=== PATIENT | female | born 1960 | race Caucasian/White ===

== ENCOUNTER 2019-10-28 14:05 | Inpatient (IN) | payer OTHER ==
[2019-10-28] MEDS ORDERED: hydrALAZINE IV* 20 MG/ML VIAL IV ONE (15:51)
[2019-10-28 16:11] LABS: ABS Basophils 0.1 10^3/ul (0-0.2); ABS Eosinophils 0.1 10^3/ul (0-0.6); ABS Lymphocytes 1.1 10^3/ul (1.0-4.8); ABS Monocytes 0.5 10^3/ul (0-0.8); ABS Neutrophils 3.6 10^3/ul (1.5-7.7); Eosinophil % 2.2 %; Hematocrit 34 % (35-47); Hemoglobin 12.5 g/dL (12.0-16.0); Lymphocyte % 20.6 %; Mean Corpuscular HGB Conc 37 g/dL (31-36); Mean Corpuscular Hemoglobin 32 pg (27-31); Mean Corpuscular Volume 87 fL (80-97); Mean Platelet Volume 5.9 fL (7.4-10.4); Platelet Count 432 10^3/uL (150-450); Red Blood Count 3.92 10^6 /uL (3.70-4.87); Red Cell Distribution Width 13 % (10-15); White Blood Count 5.3 10^3/uL (3.5-10.8)
[2019-10-28 16:15] LABS: INR 0.96 (0.82-1.09)
[2019-10-28 16:23] LABS: Albumin 4.8 g/dL (3.2-5.2); Albumin/Globulin Ratio 1.7 (1-3); BUN/Creatinine Ratio 17.5 (8-20); Calcium 9.5 mg/dL (8.6-10.3); EGFR African American 131.8 (>60); EGFR Non-African American 108.9 (>60); Globulin 2.9 g/dL (2-4); Potassium 3.6 mmol/L (3.5-5.0); Total Bilirubin 0.4 mg/dL (0.2-1.0); Total Protein 7.7 g/dL (6.4-8.9)
[2019-10-28] MEDS ORDERED: NS 0.9% 1000 ML** 1,000 ML IV ONE (16:38)
[2019-10-28 16:43] LABS: Urine Appearance Clear; Urine Bilirubin Negative (Negative); Urine Blood 1+ (Negative); Urine Color Straw; Urine Glucose Negative (Negative); Urine Ketones Negative (Negative); Urine Nitrite Negative (Negative); Urine Protein Negative (Negative); Urine Specific Gravity 1.009 (1.010-1.030); Urine Urobilinogen Negative (Negative)
--- NOTE | 2019-10-28 16:49 | ED ---
Altered Mental Status - HPI Summary HPI Summary: Patient is a 59-year-old female presenting to the ED with a variety of complaints. Her main concern is her hypertension over the past 3 months. She states she has a history of adrenal insufficiency and chronically has low sodium , ranging from between 127 and 132. She eats a very high sodium diet to try to correct this. She has also been on chronic fludrocortisone, however was recently taken off this due to her high blood pressure. She was placed on losartan and amlodipine within the past 3 months and despite these medications, her blood pressure continues to be high. She states she is been complaining of imbalance, unsteady on her feet, some confusion, slow to respond, headaches and visual changes. Visual changes are described as blurry vision, worse at night. Pt appears fairly well - but is clearly unsteady on her feet. She has never been dx with addisons disease. - History Of Current Complaint Chief Complaint: EDHypertension Stated Complaint: HIGH BLOOD PRESSURE PER PT Time Seen by Provider: 10/28/19 14:43 Hx Obtained From: Patient Onset/Duration: Still Present Timing: Constant Severity Initially: Moderate Severity Currently: Moderate Character: Confusion, Lethargy Aggravating Factor(s): Nothing Alleviating Factor(s): Nothing Associated Signs And Symptoms: Positive: Weakness - Allergies/Home Medications Allergies/Adverse Reactions: Allergies Allergy/AdvReac Type Severity Reaction Status Date / Time Iodinated Contrast Media Allergy Swelling Verified 10/28/19 14:11 Of Face,Lips,& Throat Home Medications: Home Medications ARIPiprazole TAB* [Abilify 15 MG TAB*] 15 mg PO DAILY 10/28/19 [History Confirmed 10/28/19] Benztropine TAB* [Cogentin TAB*] 0.5 mg PO BID 10/28/19 [History Confirmed 10/28] Desvenlafaxine Succinate [Desvenlafaxine ER] 50 mg PO DAILY 10/28/19 [History Confirmed 10/28/19] Diazepam TAB(*) [Valium TAB(*)] 10 mg PO BID 10/28/19 [History Confirmed ] Ibuprofen TAB* [Motrin TAB* 600 MG] 600 mg PO TID 10/28/19 [History Confirmed ] Levothyroxine TAB* [Synthroid TAB*] 50 mcg PO DAILY 10/28/19 [History Confirmed 10/28/19] Losartan Potassium 100 mg PO DAILY 10/28/19 [History Confirmed 10/28/19] OXcarbazepine TAB(*) [Trileptal 300 mg TAB(*)] 600 mg PO TID 10/28/19 [History Confirmed 10/28/19] Pregabalin 100 mg CAP (*) [Lyrica 100 mg CAP (*)] 150 mg PO BEDTIME 10/28/19 [ History Confirmed 10/28/19] amLODIPine TAB* [Norvasc 5 mg TAB*] 5 mg PO DAILY 10/28/19 [History Confirmed ] PMH/Surg Hx/FS Hx/Imm Hx Previously Healthy: Yes - Immunization History Hx Pertussis Vaccination: No Immunizations Up to Date: Yes Infectious Disease History: No Infectious Disease History: Denies: Traveled Outside the [place] in Last 30 Days - Social History Occupation: Unemployed Lives: With Family Alcohol Use: Rare Hx Substance Use: Yes Substance Use Type: Reports: Marijuana Substance Use Comment - Amount & Last Used: for pain Smoking Status (MU): Never Smoked Tobacco Review of Systems Positive: Fatigue. Negative: Fever, Chills, Skin Diaphoresis Positive: Blurred Vision Negative: Sore Throat Negative: Palpitations, Chest Pain Negative: Shortness Of Breath, Cough Genitourinary: Negative Positive: no symptoms reported, see HPI Negative: Arthralgia, Myalgia Skin: Negative Neurological/Mental Status: Negative Positive: Weakness Positive: Depressed All Other Systems Reviewed And Are Negative: Yes Physical Exam Triage Information Reviewed: Yes Vital Signs On Initial Exam: Initial Vitals Temp Pulse Resp BP Pulse Ox 97.1 F 83 18 209/99 98 10/28/19 14:08 10/28/19 14:08 10/28/19 14:08 10/28/19 14:08 10/28/19 14:08 Vital Signs Reviewed: Yes Appearance: Positive: Ill-Appearing - fatigued/pale Head/Face: Positive: Normal Head/Face Inspection Eyes: Positive: EOMI, Conjunctiva Clear Neck: Positive: Supple, No Lymphadenopathy Respiratory/Lung Sounds: Positive: Clear to Auscultation, Breath Sounds Present Cardiovascular: Positive: RRR, Pulses are Symmetrical in both Upper and Lower Extremities Musculoskeletal: Positive: Other - weakness/stumbling Neurological: Positive: Facial Symmetry, Speech Normal Psychiatric: Positive: Normal, Affect/Mood Appropriate AVPU Assessment: Alert Procedures - Sedation Patient Received Moderate/Deep Sedation with Procedure: No Diagnostics - Vital Signs Vital Signs Temp Pulse Resp BP Pulse Ox 10/28/19 16:19 74 190/93 100 10/28/19 16:01 70 100 10/28/19 15:52 77 93 10/28/19 14:08 97.1 F 83 18 209/99 98 - Laboratory Lab Results: Lab Results 10/28/19 10/28/19 10/28/19 Range/Units 15:58 15:58 15:58 WBC 5.3 (3.5-10.8) 10^3/uL RBC 3.92 (3.70-4.87) 10^6 /uL Hgb 12.5 (12.0-16.0) g/dL Hct 34 L (35-47) % MCV 87 (80-97) fL MCH 32 H (27-31) pg MCHC 37 H (31-36) g/dL RDW 13 (10-15) % Plt Count 432 (150-450) 10^3/uL MPV 5.9 L (7.4-10.4) fL Neut % (Auto) 67.4 % Lymph % (Auto) 20.6 % [place] % (Auto) 8.7 % Eos % (Auto) 2.2 % Baso % (Auto) 1.1 % Absolute Neuts (auto) 3.6 (1.5-7.7) 10^3/ul Absolute Lymphs (auto) 1.1 (1.0-4.8) 10^3/ul Absolute Monos (auto) 0.5 (0-0.8) 10^3/ul Absolute Eos (auto) 0.1 (0-0.6) 10^3/ul Absolute Basos (auto) 0.1 (0-0.2) 10^3/ul Absolute Nucleated RBC 0.0 10^3/ul Nucleated RBC % 0.0 INR (Anticoag Therapy) 0.96 (0.82-1.09) Sodium 118 L* (135-145) mmol/L Potassium 3.6 (3.5-5.0) mmol/L Chloride 85 L (101-111) mmol/L Carbon Dioxide 28 (22-32) mmol/L Anion Gap 5 (2-11) mmol/L BUN 10 (6-24) mg/dL Creatinine 0.57 (0.51-0.95) mg/dL Est GFR ( Amer) 131.8 (>60) Est GFR (Non-Af Amer) 108.9 (>60) BUN/Creatinine Ratio 17.5 (8-20) Glucose 98 (70-100) mg/dL Lactic Acid (0.5-2.0) mmol/L Calcium 9.5 (8.6-10.3) mg/dL Total Bilirubin 0.40 (0.2-1.0) mg/dL AST 19 (13-39) U/L ALT 10 (7-52) U/L Alkaline Phosphatase 80 (34-104) U/L Troponin I 0.00 (<0.03) ng/mL Total Protein 7.7 (6.4-8.9) g/dL Albumin 4.8 (3.2-5.2) g/dL Globulin 2.9 (2-4) g/dL Albumin/Globulin Ratio 1.7 (1-3) TSH Pending Thyroxine (T4) Pending Urine Color Urine Appearance Urine pH (5-9) Ur Specific [place] (1.010-1.030) Urine Protein (Negative) Urine Ketones (Negative) Urine Blood (Negative) Urine Nitrate (Negative) Urine Bilirubin (Negative) Urine Urobilinogen (Negative) Ur Leukocyte Esterase (Negative) Urine Glucose (Negative) 10/28/19 10/28/19 Range/Units 15:58 16:25 WBC (3.5-10.8) 10^3/uL RBC (3.70-4.87) 10^6 /uL Hgb (12.0-16.0) g/dL Hct (35-47) % MCV (80-97) fL MCH (27-31) pg MCHC (31-36) g/dL RDW (10-15) % Plt Count (150-450) 10^3/uL MPV (7.4-10.4) fL Neut % (Auto) % Lymph % (Auto) % [place] % (Auto) % Eos % (Auto) % Baso % (Auto) % Absolute Neuts (auto) (1.5-7.7) 10^3/ul Absolute Lymphs (auto) (1.0-4.8) 10^3/ul Absolute Monos (auto) (0-0.8) 10^3/ul Absolute Eos (auto) (0-0.6) 10^3/ul Absolute Basos (auto) (0-0.2) 10^3/ul Absolute Nucleated RBC 10^3/ul Nucleated RBC % INR (Anticoag Therapy) (0.82-1.09) Sodium (135-145) mmol/L Potassium (3.5-5.0) mmol/L Chloride (101-111) mmol/L Carbon Dioxide (22-32) mmol/L Anion Gap (2-11) mmol/L BUN (6-24) mg/dL Creatinine (0.51-0.95) mg/dL Est GFR ( Amer) (>60) Est GFR (Non-Af Amer) (>60) BUN/Creatinine Ratio (8-20) Glucose (70-100) mg/dL Lactic Acid 0.4 L (0.5-2.0) mmol/L Calcium (8.6-10.3) mg/dL Total Bilirubin (0.2-1.0) mg/dL AST (13-39) U/L ALT (7-52) U/L Alkaline Phosphatase (34-104) U/L Troponin I (<0.03) ng/mL Total Protein (6.4-8.9) g/dL Albumin (3.2-5.2) g/dL Globulin (2-4) g/dL Albumin/Globulin Ratio (1-3) TSH Thyroxine (T4) Urine Color Straw Urine Appearance Clear Urine pH 7.0 (5-9) Ur Specific [place] 1.009 L (1.010-1.030) Urine Protein Negative (Negative) Urine Ketones Negative (Negative) Urine Blood 1+ A (Negative) Urine Nitrate Negative (Negative) Urine Bilirubin Negative (Negative) Urine Urobilinogen Negative (Negative) Ur Leukocyte Esterase Negative (Negative) Urine Glucose Negative (Negative) Result Diagrams: 10/28/19 15:58 10/28/19 15:58 Lab Statement: Any lab studies that have been ordered have been reviewed, and results considered in the medical decision making process. Altered Mental Statu Course/Dx - Course Course Of Treatment: This patient is evaluated for multiple complaints. Patient states she has been more unsteady on her feet, slow to respond, having visual changes and some headaches. She denies any pain currently. She states she also has chronic pain and recently had injections into the right neck and shoulder. She states despite being pain-free, her blood pressure still is very high and believes her symptoms are related to this. She is noted to be 209/99 on arrival. She does take losartan and amlodipine shoe. She was given hydralazine 5 mg and labs were obtained. This shows a sodium level of 118. Other labs unremarkable. Patient continues to be symptomatic, normal saline given. Discussed case with Dr. Wan and Dr. Marrero. Will see patient in the ED and admit. - Diagnoses Differential Diagnosis/HQI/PQRI: Metabolic Disorder, Other - htn, adrenal insufficiency Provider Diagnoses: Hyponatremia Discharge ED - Sign-Out/Discharge Documenting (check all that apply): Patient Departure - Discharge Plan Condition: Fair Disposition: ADMITTED TO [facility] Referrals: No Primary Care Phys,NOPCP [Primary Care Provider] - - Billing Disposition and Condition Condition: FAIR Disposition: Admitted to [facility] - Attestation Statements Provider Attestation: I was available for consult. This patient was seen by the SHARON. The patient was not presented to, seen by, or examined by me. Alistair Florian MD
[2019-10-28 16:51] LABS: Urine Bacteria Absent (Absent); Urine Red Blood Cell Trace(0-2/hpf) (Absent); Urine Squamous Epithelial Cell Present (Absent); Urine White Blood Cell Trace(0-5/hpf) (Absent)
[2019-10-28 16:54] LABS: T4, Total 5.43 mcg/dL (6.09-12.23)
[2019-10-28 16:58] LABS: TSH (Thyroid Stimulating Horm) 2.79 mcIU/mL (0.34-5.60)
[2019-10-28] MEDS ORDERED: hydrALAZINE IV* 20 MG/ML VIAL IV SLOW PU PRN (17:47)
--- NOTE | 2019-10-28 19:56 | HP ---
ADMISSION HISTORY AND PHYSICAL: DATE OF ADMISSION: 10/28/19 ATTENDING FOR THIS ADMISSION: Dr. Reynaldo Marrero, ICU bulb filler.* (dictated by Madi Gan NP) PRIMARY CARE PROVIDER: Not local. The patient is from [place]. CHIEF COMPLAINT: Hypertension. HISTORY OF PRESENT ILLNESS: This is a 59-year-old female patient who presented to the emergency department today with a series of complaints ranging from dizziness to unsteadiness in her feet to blurry vision, also some hypertension. The patient states that she was in [place] yesterday, having a radiofrequency ablation of her cervical spine. She does have chronic spinal issues secondary to an injury many years ago and that she has been following up with [place] with pain management clinic out there. She had this procedure yesterday; however, she has had some persistent hypertension over the last couple of months; however, blood pressure was much more elevated today prompting her to seek additional medical attention. In the emergency department , the patient is noted to have a very elevated blood pressure of 209/99. She was also noted to be hyponatremic with a sodium of 118. The patient does state that these problems have been persistent over the last 3 months and that she has had a progressive malaise. She does have a history of adrenal insufficiency and had been on fludrocortisone for many years; however, she was taken off the fludrocortisone because she was having elevated blood pressures. She was started on losartan and amlodipine to control her hypertension; however , she has not been successfully well controlled. In the emergency department today, she is also complaining of being unsteady on her feet. She has got a profound headache and some visual changes. She notes her vision to be blurry and overall feeling unwell. Because the patient had such a low sodium with complaints of dizziness, there was concern for the patient of having an acute symptomatic hyponatremia and subsequently ICU was called to plan the patient for admission. PAST MEDICAL HISTORY: Significant for adrenal insufficiency, hypertension, chronic hyponatremia, chronic cervical myalgia, RDS, depression, mood disorder, chronic pain, and hypothyroidism. PAST SURGICAL HISTORY: Significant for multiple radiofrequency ablations of the cervical spine, cervical spine stimulator insertion and a right shoulder surgery. HOME MEDICATIONS: Include: 1. Amlodipine 5 mg daily. 2. Losartan 100 mg p.o. daily. 3. Levothyroxine 50 mcg p.o. daily. 4. Diazepam 10 mg p.o. b.i.d. 5. Abilify 15 mg p.o. daily. 6. Lyrica 150 mg at bedtime. 7. Benztropine 0.5 mg p.o. b.i.d. 8. Trileptal 600 mg p.o. t.i.d. 9. Ibuprofen 600 mg p.o. t.i.d. 10. Desvenlafaxine ER 50 mg p.o. daily. ALLERGIES: She has an allergy to IODINE, IV CONTRAST DYE, which causes throat swelling. FAMILY HISTORY: She has a sister with breast cancer and no further family history is reported. SOCIAL HISTORY: The patient does not smoke cigarettes. She does infrequently smoke cannabis products for pain control. Denies any alcohol use. Denies any other illicit drug use. REVIEW OF SYSTEMS: The patient denies any fever, fatigue, or chills. She does endorse a 7/10 headache and some moderately blurred vision, but she denies any further visual disturbances. She denies any auras. She also denies any dysarthria or any focal weakness. She denies chest pain. No shortness of breath. No nausea. No vomiting. No abdominal pains. She denies any arthralgias. She does have some myalgia and some neck pain and also some cervical pain in the right neck and into the right shoulder and then lumbar pain on the right side also radiating into the right hip which she notes to be chronic. Denies any urinary complaints. She does endorse feeling unsteady on her feet, but denies any further focalities and no further constitutional complaints. PHYSICAL EXAMINATION GENERAL: Reveals a well-nourished, well-appearing female, in no acute distress. VITAL SIGNS: Temperature 97.1, pulse 83, respiratory rate 18, O2 saturation 98 % on room air with a blood pressure of 209/99, repeat blood pressure is 190/93. HEENT: The patient is atraumatic, normocephalic. PERRLA. Nonicteric sclerae. Extraocular movements are intact. Oral mucosa is moist. Tongue is midline. NECK: Supple, nontender. No JVD noted. No carotid bruits auscultated. LUNGS: Clear bilaterally to auscultation with no wheezing, rhonchi, or rales. CARDIOVASCULAR: S1, S2 present. Rate and rhythm are regular. No murmurs, gallops, or rubs noted. ABDOMEN: Soft, nontender, nondistended. Positive bowel sounds in all 4 quadrants. No organomegaly noted. : Deferred. MUSCULOSKELETAL: There is no clubbing, no cyanosis, and no edema. She has +2 distal pulses palpable. She has gross sensation intact of the upper and lower extremities. Motor is 5/5 on the left upper extremity, 5/5 on the left lower extremity, 5/5 on the right lower extremity and 4/5 on the right upper extremity. Her right electronics hardware design engineer is slightly weaker than her left electronics hardware design engineer. She has no pronator drift. NEUROLOGIC: She has no further focalities. PSYCHIATRIC: She is cooperative and appropriate. DIAGNOSTIC STUDIES/LAB DATA: Laboratories: WBCs 5.3, RBCs 3.92, hemoglobin 12.5, hematocrit 34, platelets 432. Sodium 118, potassium 3.6, chloride 85, CO2 of 28, BUN 10, creatinine 0.57, GFR 108.9, glucose 98, lactic acid 0.4, calcium 9.5, bilirubin 0.40, AST 19, ALT 10, alk phos 80. Troponin is negative at 0.00. Total protein 7.7, albumin 4.8, globulin 2.9, albumin-globulin ratio 1.7, TSH 2.79, free T4 is 5.43. Urinalysis is negative for any acute infective process. Imaging: Chest x-ray, impression by radiology is no acute cardiopulmonary process. IMPRESSION: This is a 59-year-old female who presents to the emergency department with vague complaints, but primarily is presenting with an elevated and accelerated blood pressure and a chronically low sodium. PLAN: 1. Initially, the patient does not necessarily present as she was having an acute drop in her sodium. Per the patient's report, her sodium was 105 last week when she was seen in [place] at the urgent care. At that time, she was told to have fluid restriction and followup with her primary care provider who is in [place]. Her sodium is now up to 118 over the course of the last week, so it is steadily increasing. At this point, I do not feel that her symptoms are necessarily related to her sodium; however, her headache and her dizziness could very well be related to her accelerated hypertension. Her blood pressure came in at 209/99. She did receive 1 dose of hydralazine and her blood pressure is starting to come down. We will continue her on hydralazine q.6 hours. Start her back on her amlodipine and her losartan and continue to monitor her blood pressure. In terms of her history of hyponatremia , she is on a very high dose of Trileptal which is likely contributing to her chronically low sodium and can also cause SIADH. At this point, it would take some time to taper the patient off of her Trileptal and she is stabilized on that, likely for both behavioral component and for chronic pain. It would be our recommendation that the patient begin to taper off of the Trileptal; however , this is something that would need to be done in the outpatient environment. At this time, she has received 1 L of bolus of normal saline and again I do not believe that her symptoms right now are indicative of acute hyponatremia. She should be on a free water restriction while hospitalized. We will do BMPs q.6 hours and monitor for correction of her sodium while acutely hospitalized. Urine sodium and osmo are pending. 2. In terms of her chronic pain, she does have chronic cervical myalgia and history of RDS. She did have radiofrequency ablation in [place] yesterday. Her electronics hardware design engineer on the right hand is somewhat weaker than her left, but again these are all chronic issues. She did receive anesthesia for this procedure yesterday. Some of her gait dysfunction and weakness could be due to chronic cervical and cord issues; however, she also takes Cogentin and has been on multiple antipsychotics in the past. Some of her gait dysfunction could be secondary to EPS syndrome. She is on Cogentin 2 times a day. I would recommend having a PT evaluation. I also explained to the patient that she should have neurosurgical evaluation. She does state that her issues with her C -spine were secondary to an injury and a Workmen's Comp case. Again, these are not acute issues. She is not showing any neurovascular compromise. She does not have a myelopathy and although her electronics hardware design engineer is slightly weaker on the right side versus the left, she does not seem to be acutely impaired. Again, these are things that should be followed up as an outpatient. 3. History of depression and mood disorder. We will continue her on her home medications, but as stated above, the Trileptal is something that should be managed on an ongoing basis as an outpatient and given her history of low sodium , she should likely follow up with the psychiatrist or a primary care provider that should taper her off and put her on a different mood stabilizer if her sodiums cannot be better controlled and she persistently has hyponatremia and SIADH. 4. Potential Adrenal Insufficiency. Patient is off steroids at this time, will check AM cortisol level and consider endocrine consultation tomorrow. 4. For DVT prophylaxis, the patient is low risk given her age; however, she is being admitted to ICU. She should be on SCDs and then ambulate with assistance as tolerated. 5. Her healthcare proxy is her sister, Lary, who is at the bedside. 6. Code status is full code. DISPOSITION: The patient is admitted to ICU for intensive monitoring of sodium levels and management of accelerated hypertension. CRITICAL CARE TIME SPENT: 45 minutes on admission planning. This plan of care has been discussed with Dr. Reynaldo Marrero, ICU attending on this case and he is in agreement with this admission plan. MADI GAN NP [id number]/CPS #: [id number] HERIBERTO
[2019-10-28] MEDS ORDERED: Diazepam TAB(*) 10 MG PO SCH (21:00)
[2019-10-28] MEDS ORDERED: Pregabalin 100 mg CAP (*) PO SCH (21:00)
[2019-10-28] MEDS: Pregabalin 50 mg CAP (*) PO SCH (22:39)
[2019-10-28] MEDS: Benztropine TAB* 1 MG PO SCH (22:40)
[2019-10-28] MEDS: OXcarbazepine TAB(*) 300 MG PO SCH (22:45)
[2019-10-29 00:44] LABS: BUN/Creatinine Ratio 15.7 (8-20); Calcium 9.2 mg/dL (8.6-10.3); EGFR African American 149.9 (>60); EGFR Non-African American 123.9 (>60); Potassium 3.6 mmol/L (3.5-5.0)
[2019-10-29] MEDS: Levothyroxine TAB* 50 MCG TAB PO SCH (05:25)
[2019-10-29 06:02] LABS: BUN/Creatinine Ratio 16.4 (8-20); Calcium 8.9 mg/dL (8.6-10.3); EGFR African American 137.4 (>60); EGFR Non-African American 113.5 (>60); Potassium 3.8 mmol/L (3.5-5.0)
[2019-10-29] MEDS: Benztropine TAB* 1 MG PO SCH ×2 (08:32→20:43)
[2019-10-29] MEDS: amLODIPine TAB* 5 MG PO SCH (08:33)
[2019-10-29] MEDS: ARIPiprazole TAB* 15 MG PO SCH (08:33)
[2019-10-29] MEDS: CMCS:Desvenlafaxine (NF) 50 MG TAB PO SCH (08:34)
[2019-10-29] MEDS: OXcarbazepine TAB(*) 300 MG PO SCH ×3 (08:34→20:45)
[2019-10-29] MEDS ORDERED: Desvenlafaxine (NF) 50 MG TAB PO SCH (09:00)
[2019-10-29] MEDS ORDERED: ARIPiprazole TAB* 15 MG PO SCH (09:00)
[2019-10-29] MEDS ORDERED: Levothyroxine TAB* 50 MCG TAB PO SCH (09:00)
[2019-10-29] MEDS ORDERED: Cosyntropin* 0.25 MG VIAL IV ONE (09:30)
[2019-10-29] MEDS: Losartan TAB* 25 MG PO SCH (10:21)
--- NOTE | 2019-10-29 12:55 | PN ---
Subjective Date of Service: 10/29/19 Interval History: Patient seen and examined. No acute overnight events. Symptoms of headache, lethargy and blurry vision all vastly improved this morning. BP well controlled , sodium increasing. Discussed POC with patient and her sister at bedside. Objective Active Medications: Amlodipine Besylate (Norvasc Tab*) 5 mg PO DAILY [facility] Last Admin: 10/29/19 08:33 Dose: 5 mg Aripiprazole (Abilify Tab*) 15 mg PO DAILY [facility] Last Admin: 10/29/19 08:33 Dose: 15 mg Benztropine Mesylate (Cogentin Tab*) 0.5 mg PO BID [facility] Last Admin: 10/29/19 08:32 Dose: 0.5 mg Desvenlafaxine Succinate (Pristiq (Nf)) 50 mg PO DAILY [facility] Last Admin: 10/29/19 08:34 Dose: 50 mg Diazepam (Valium Tab(*)) 10 mg PO BID PRN PRN Reason: AGITATION/ANXIETY Hydralazine HCl (Apresoline Iv*) 5 mg IV SLOW PU Q6H PRN PRN Reason: SBP>160 Levothyroxine Sodium (Synthroid Tab*) 50 mcg PO DAILY@0600 [facility] Last Admin: 10/29/19 05:25 Dose: 50 mcg Losartan Potassium (Cozaar Tab*) 100 mg PO DAILY [facility] Last Admin: 10/29/19 10:21 Dose: 100 mg Oxcarbazepine (Trileptal Tab(*)) 600 mg PO TID [facility] Last Admin: 10/29/19 08:34 Dose: 600 mg Pregabalin (Lyrica 50 Mg Cap (*)) 150 mg PO BEDTIME [facility] Last Admin: 10/28/19 22:39 Dose: 150 mg Vital Signs - 8 hr 10/29/19 10/29/19 10/29/19 04:51 05:00 05:01 Temperature Pulse Rate 77 81 Respiratory 20 19 15 Rate Blood Pressure 141/77 (mmHg) O2 Sat by Pulse 97 75 Oximetry 10/29/19 10/29/19 10/29/19 06:00 06:16 07:00 Temperature Pulse Rate 68 Respiratory 20 23 20 Rate Blood Pressure 167/89 153/87 (mmHg) O2 Sat by Pulse 98 Oximetry 10/29/19 10/29/19 10/29/19 07:48 08:00 09:00 Temperature 96.6 F Pulse Rate 63 83 Respiratory 20 23 Rate Blood Pressure 128/79 159/87 (mmHg) O2 Sat by Pulse 98 94 Oximetry 10/29/19 10/29/19 10/29/19 10:00 10:51 10:56 Temperature Pulse Rate 99 87 84 Respiratory 20 16 17 Rate Blood Pressure 180/96 158/88 (mmHg) O2 Sat by Pulse 100 98 96 Oximetry 10/29/19 10/29/19 10/29/19 11:00 11:37 11:44 Temperature 100.1 F Pulse Rate 84 86 Respiratory 15 18 Rate Blood Pressure 147/88 148/85 (mmHg) O2 Sat by Pulse 99 100 Oximetry 10/29/19 12:00 Temperature Pulse Rate 91 Respiratory 26 Rate Blood Pressure 161/95 (mmHg) O2 Sat by Pulse 93 Oximetry Oxygen Devices in Use Now: None Appearance: alert, well appearing, NAD Eyes: No Scleral Icterus, PERRLA Ears/Nose/Mouth/Throat: Mucous Membranes Moist Neck: NL Appearance and Movements; NL JVP, Trachea Midline Respiratory: Symmetrical Chest Expansion and Respiratory Effort, Clear to Auscultation Cardiovascular: NL Sounds; No Murmurs; No JVD, RRR, No Edema Abdominal: NL Sounds; No Tenderness; No Distention Extremities: No Edema, No Clubbing, Cyanosis Skin: No Rash or Ulcers Neurological: Alert and Oriented x 3, NL Muscle Strength and Tone Nutrition: Taking PO's Result Diagrams: 10/28/19 15:58 10/29/19 05:30 Additional Lab and Data: Lab Results 10/28/19 10/28/19 10/28/19 Range/Units 15:58 15:58 15:58 WBC 5.3 (3.5-10.8) 10^3/uL RBC 3.92 (3.70-4.87) 10^6 /uL Hgb 12.5 (12.0-16.0) g/dL Hct 34 L (35-47) % MCV 87 (80-97) fL MCH 32 H (27-31) pg MCHC 37 H (31-36) g/dL RDW 13 (10-15) % Plt Count 432 (150-450) 10^3/uL MPV 5.9 L (7.4-10.4) fL Neut % (Auto) 67.4 % Lymph % (Auto) 20.6 % [place] % (Auto) 8.7 % Eos % (Auto) 2.2 % Baso % (Auto) 1.1 % Absolute Neuts (auto) 3.6 (1.5-7.7) 10^3/ul Absolute Lymphs (auto) 1.1 (1.0-4.8) 10^3/ul Absolute Monos (auto) 0.5 (0-0.8) 10^3/ul Absolute Eos (auto) 0.1 (0-0.6) 10^3/ul Absolute Basos (auto) 0.1 (0-0.2) 10^3/ul Absolute Nucleated RBC 0.0 10^3/ul Nucleated RBC % 0.0 INR (Anticoag Therapy) 0.96 (0.82-1.09) Sodium 118 L* (135-145) mmol/L Potassium 3.6 (3.5-5.0) mmol/L Chloride 85 L (101-111) mmol/L Carbon Dioxide 28 (22-32) mmol/L Anion Gap 5 (2-11) mmol/L BUN 10 (6-24) mg/dL Creatinine 0.57 (0.51-0.95) mg/dL Est GFR ( Amer) 131.8 (>60) Est GFR (Non-Af Amer) 108.9 (>60) BUN/Creatinine Ratio 17.5 (8-20) Glucose 98 (70-100) mg/dL Lactic Acid (0.5-2.0) mmol/L Calcium 9.5 (8.6-10.3) mg/dL Total Bilirubin 0.40 (0.2-1.0) mg/dL AST 19 (13-39) U/L ALT 10 (7-52) U/L Alkaline Phosphatase 80 (34-104) U/L Troponin I 0.00 (<0.03) ng/mL Total Protein 7.7 (6.4-8.9) g/dL Albumin 4.8 (3.2-5.2) g/dL Globulin 2.9 (2-4) g/dL Albumin/Globulin Ratio 1.7 (1-3) TSH Pending Thyroxine (T4) Pending Urine Color Urine Appearance Urine pH (5-9) Ur Specific [place] (1.010-1.030) Urine Protein (Negative) Urine Ketones (Negative) Urine Blood (Negative) Urine Nitrate (Negative) Urine Bilirubin (Negative) Urine Urobilinogen (Negative) Ur Leukocyte Esterase (Negative) Urine Glucose (Negative) 10/28/19 10/28/19 Range/Units 15:58 16:25 WBC (3.5-10.8) 10^3/uL RBC (3.70-4.87) 10^6 /uL Hgb (12.0-16.0) g/dL Hct (35-47) % MCV (80-97) fL MCH (27-31) pg MCHC (31-36) g/dL RDW (10-15) % Plt Count (150-450) 10^3/uL MPV (7.4-10.4) fL Neut % (Auto) % Lymph % (Auto) % [place] % (Auto) % Eos % (Auto) % Baso % (Auto) % Absolute Neuts (auto) (1.5-7.7) 10^3/ul Absolute Lymphs (auto) (1.0-4.8) 10^3/ul Absolute Monos (auto) (0-0.8) 10^3/ul Absolute Eos (auto) (0-0.6) 10^3/ul Absolute Basos (auto) (0-0.2) 10^3/ul Absolute Nucleated RBC 10^3/ul Nucleated RBC % INR (Anticoag Therapy) (0.82-1.09) Sodium (135-145) mmol/L Potassium (3.5-5.0) mmol/L Chloride (101-111) mmol/L Carbon Dioxide (22-32) mmol/L Anion Gap (2-11) mmol/L BUN (6-24) mg/dL Creatinine (0.51-0.95) mg/dL Est GFR ( Amer) (>60) Est GFR (Non-Af Amer) (>60) BUN/Creatinine Ratio (8-20) Glucose (70-100) mg/dL Lactic Acid 0.4 L (0.5-2.0) mmol/L Calcium (8.6-10.3) mg/dL Total Bilirubin (0.2-1.0) mg/dL AST (13-39) U/L ALT (7-52) U/L Alkaline Phosphatase (34-104) U/L Troponin I (<0.03) ng/mL Total Protein (6.4-8.9) g/dL Albumin (3.2-5.2) g/dL Globulin (2-4) g/dL Albumin/Globulin Ratio (1-3) TSH Thyroxine (T4) Urine Color Straw Urine Appearance Clear Urine pH 7.0 (5-9) Ur Specific [place] 1.009 L (1.010-1.030) Urine Protein Negative (Negative) Urine Ketones Negative (Negative) Urine Blood 1+ A (Negative) Urine Nitrate Negative (Negative) Urine Bilirubin Negative (Negative) Urine Urobilinogen Negative (Negative) Ur Leukocyte Esterase Negative (Negative) Urine Glucose Negative (Negative) Microbiology and Other Data: Microbiology 10/28/19 21:27 Nasal Screen MRSA (PCR) - Final Nasal Mrsa Not Detected Assess/Plan/Problems-Billing Assessment: This is a 59 year old female with reported hx of chronic hyponatremia, adrenal insufficiency, chronic pain, mood disorder and HTN that presented to the ED with complaints of accelerated hypertension and low sodium. - Patient Problems (1) Accelerated hypertension Code(s): I10 - ESSENTIAL (PRIMARY) HYPERTENSION SNOMED Code(s): 14327222 Comment: - Responded well to hydralazine - Restarted home meds, amlodipine and losartan (2) Adrenal insufficiency Code(s): E27.40 - UNSPECIFIED ADRENOCORTICAL INSUFFICIENCY SNOMED Code(s): 934934671 Comment: - was on fludricortisone for many years then abruptly taken off by PCP last month because of hypertension - However, ACTH stim test completed today is negative, so it is unclear if she ever truly had the diagnosis - Will cancel consult with endocrinology (3) Hyponatremia Code(s): E87.1 - HYPO-OSMOLALITY AND HYPONATREMIA SNOMED Code(s): 54286225 Comment: - Likely component of effects of trileptal/SIADH - Sodium 123 today - Recommend continuing fluid restriction and taper off trileptal as an outpatient, discussed at length with patient to monitor sodium levels after discharge and discuss with her psychiatrist - Urine sodium and osmo pending (4) Mood disorder Code(s): F39 - UNSPECIFIED MOOD [AFFECTIVE] DISORDER SNOMED Code(s): 64740248 Comment: - Continue home meds, recommend different mood stabilizer other than trileptal given chronically low sodium (5) Chronic pain Code(s): G89.29 - OTHER CHRONIC PAIN SNOMED Code(s): 81970426 Comment: - Supportive care (6) Full code status Current Visit: Yes Status: Acute Code(s): Z78.9 - OTHER SPECIFIED HEALTH STATUS SNOMED Code(s): 989373932 Status and Disposition: Medically stable for transfer to medical floor.
[2019-10-29] MEDS: Acetaminophen TAB* 325 MG PO PRN (20:42)
[2019-10-29] MEDS: Pregabalin 50 mg CAP (*) PO SCH (20:43)
[2019-10-30] MEDS: Levothyroxine TAB* 50 MCG TAB PO SCH (05:18)
--- NOTE | 2019-10-30 07:28 | PN ---
Subjective Date of Service: 10/30/19 Interval History: HD 3 on 10/30 Transferred from ICU on 10/29 59 F with PMH of chronic hyponatremia, suspected adrenal insufficiency, HTN, chronic pain, mood disorder presents with dizziness and unsteadiness. Found to have acclerated Hypertension and severe hyponatremia. Treated with IV fluid in ICU and with hydralazine for HTN. Yesterday felt light-headed while working with physical therapy Overnight; No acute overnight events vitals: stable Patient was feeling fine this morning. She denied weakness, dizziness, numbness and was feeling back to baseline. She was keen on going home. Her NA coming to normal; 126 from 123 wasted to assess her by PT as he had near syncope yesterday. patient was walking around fine with walker with nursing staff. While walking with PT at around 3:00 PM patient passed out. She says that her leg felt weak, felt nauseous and sick to belly before passing out. Denies chest pain, sob, palpitation. Her HR was normal, BG was 92, BP normal. No new neurological deficit noted. EKG was normal with sinus rhythm. Met with patient family and patient had similar episodes before in [place] and was admitted multiple times. It was thought to be because of pain so she was discharged. She had radiofrequency ablation one day before coming to ED at [facility]. Objective Active Medications: Acetaminophen (Tylenol Tab*) 650 mg PO Q6H PRN PRN Reason: MILD PAIN or TEMP > 100.4 Last Admin: 10/29/19 20:42 Dose: 650 mg Amlodipine Besylate (Norvasc Tab*) 5 mg PO DAILY [facility] Last Admin: 10/29/19 08:33 Dose: 5 mg Aripiprazole (Abilify Tab*) 15 mg PO DAILY [facility] Last Admin: 10/29/19 08:33 Dose: 15 mg Benztropine Mesylate (Cogentin Tab*) 0.5 mg PO BID [facility] Last Admin: 10/29/19 20:43 Dose: 0.5 mg Desvenlafaxine Succinate (Pristiq (Nf)) 50 mg PO DAILY [facility] Last Admin: 10/29/19 08:34 Dose: 50 mg Diazepam (Valium Tab(*)) 10 mg PO BID PRN PRN Reason: AGITATION/ANXIETY Hydralazine HCl (Apresoline Iv*) 5 mg IV SLOW PU Q6H PRN PRN Reason: SBP>160 Levothyroxine Sodium (Synthroid Tab*) 50 mcg PO DAILY@0600 [facility] Last Admin: 10/30/19 05:18 Dose: 50 mcg Losartan Potassium (Cozaar Tab*) 100 mg PO DAILY [facility] Last Admin: 10/29/19 10:21 Dose: 100 mg Oxcarbazepine (Trileptal Tab(*)) 600 mg PO TID [facility] Last Admin: 10/29/19 20:45 Dose: 600 mg Pregabalin (Lyrica 50 Mg Cap (*)) 150 mg PO BEDTIME [facility] Last Admin: 10/29/19 20:43 Dose: 150 mg Vital Signs - 8 hr 10/29/19 10/30/19 23:54 03:23 Temperature 98.4 F 98.0 F Pulse Rate 80 81 Respiratory 16 18 Rate Blood Pressure 124/60 139/68 (mmHg) O2 Sat by Pulse 100 100 Oximetry Oxygen Devices in Use Now: None Exam: General - NAD, sitting up in bed, Eyes - PERRLA, EOM intact HEENT- no abnormality Lymph Nodes - No lymphadenopathy Cardiovascular - RRR no m/r/g, no JVD, no carotid bruits Lungs - Clear to auscltation, no use of acessory muscles, no crackles or wheezes. Skin - No rashes, skin warm and dry, no erythematous areas Abdomen - Normal bowel sounds, abdomen soft and nontender Extremities - No edema, cyanosis or clubbing Musculo Skeletal - , no swollen or erythematous joints. 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 CN intact Result Diagrams: 10/28/19 15:58 10/30/19 09:35 Additional Lab and Data: Lab Results 10/28/19 10/28/19 10/28/19 Range/Units 15:58 15:58 15:58 WBC 5.3 (3.5-10.8) 10^3/uL RBC 3.92 (3.70-4.87) 10^6 /uL Hgb 12.5 (12.0-16.0) g/dL Hct 34 L (35-47) % MCV 87 (80-97) fL MCH 32 H (27-31) pg MCHC 37 H (31-36) g/dL RDW 13 (10-15) % Plt Count 432 (150-450) 10^3/uL MPV 5.9 L (7.4-10.4) fL Neut % (Auto) 67.4 % Lymph % (Auto) 20.6 % [place] % (Auto) 8.7 % Eos % (Auto) 2.2 % Baso % (Auto) 1.1 % Absolute Neuts (auto) 3.6 (1.5-7.7) 10^3/ul Absolute Lymphs (auto) 1.1 (1.0-4.8) 10^3/ul Absolute Monos (auto) 0.5 (0-0.8) 10^3/ul Absolute Eos (auto) 0.1 (0-0.6) 10^3/ul Absolute Basos (auto) 0.1 (0-0.2) 10^3/ul Absolute Nucleated RBC 0.0 10^3/ul Nucleated RBC % 0.0 INR (Anticoag Therapy) 0.96 (0.82-1.09) Sodium 118 L* (135-145) mmol/L Potassium 3.6 (3.5-5.0) mmol/L Chloride 85 L (101-111) mmol/L Carbon Dioxide 28 (22-32) mmol/L Anion Gap 5 (2-11) mmol/L BUN 10 (6-24) mg/dL Creatinine 0.57 (0.51-0.95) mg/dL Est GFR ( Amer) 131.8 (>60) Est GFR (Non-Af Amer) 108.9 (>60) BUN/Creatinine Ratio 17.5 (8-20) Glucose 98 (70-100) mg/dL Lactic Acid (0.5-2.0) mmol/L Calcium 9.5 (8.6-10.3) mg/dL Total Bilirubin 0.40 (0.2-1.0) mg/dL AST 19 (13-39) U/L ALT 10 (7-52) U/L Alkaline Phosphatase 80 (34-104) U/L Troponin I 0.00 (<0.03) ng/mL Total Protein 7.7 (6.4-8.9) g/dL Albumin 4.8 (3.2-5.2) g/dL Globulin 2.9 (2-4) g/dL Albumin/Globulin Ratio 1.7 (1-3) TSH Pending Thyroxine (T4) Pending Urine Color Urine Appearance Urine pH (5-9) Ur Specific [place] (1.010-1.030) Urine Protein (Negative) Urine Ketones (Negative) Urine Blood (Negative) Urine Nitrate (Negative) Urine Bilirubin (Negative) Urine Urobilinogen (Negative) Ur Leukocyte Esterase (Negative) Urine Glucose (Negative) 10/28/19 10/28/19 Range/Units 15:58 16:25 WBC (3.5-10.8) 10^3/uL RBC (3.70-4.87) 10^6 /uL Hgb (12.0-16.0) g/dL Hct (35-47) % MCV (80-97) fL MCH (27-31) pg MCHC (31-36) g/dL RDW (10-15) % Plt Count (150-450) 10^3/uL MPV (7.4-10.4) fL Neut % (Auto) % Lymph % (Auto) % [place] % (Auto) % Eos % (Auto) % Baso % (Auto) % Absolute Neuts (auto) (1.5-7.7) 10^3/ul Absolute Lymphs (auto) (1.0-4.8) 10^3/ul Absolute Monos (auto) (0-0.8) 10^3/ul Absolute Eos (auto) (0-0.6) 10^3/ul Absolute Basos (auto) (0-0.2) 10^3/ul Absolute Nucleated RBC 10^3/ul Nucleated RBC % INR (Anticoag Therapy) (0.82-1.09) Sodium (135-145) mmol/L Potassium (3.5-5.0) mmol/L Chloride (101-111) mmol/L Carbon Dioxide (22-32) mmol/L Anion Gap (2-11) mmol/L BUN (6-24) mg/dL Creatinine (0.51-0.95) mg/dL Est GFR ( Amer) (>60) Est GFR (Non-Af Amer) (>60) BUN/Creatinine Ratio (8-20) Glucose (70-100) mg/dL Lactic Acid 0.4 L (0.5-2.0) mmol/L Calcium (8.6-10.3) mg/dL Total Bilirubin (0.2-1.0) mg/dL AST (13-39) U/L ALT (7-52) U/L Alkaline Phosphatase (34-104) U/L Troponin I (<0.03) ng/mL Total Protein (6.4-8.9) g/dL Albumin (3.2-5.2) g/dL Globulin (2-4) g/dL Albumin/Globulin Ratio (1-3) TSH Thyroxine (T4) Urine Color Straw Urine Appearance Clear Urine pH 7.0 (5-9) Ur Specific [place] 1.009 L (1.010-1.030) Urine Protein Negative (Negative) Urine Ketones Negative (Negative) Urine Blood 1+ A (Negative) Urine Nitrate Negative (Negative) Urine Bilirubin Negative (Negative) Urine Urobilinogen Negative (Negative) Ur Leukocyte Esterase Negative (Negative) Urine Glucose Negative (Negative) Microbiology and Other Data: Microbiology 10/28/19 21:27 Nasal Screen MRSA (PCR) - Final Nasal Mrsa Not Detected Assess/Plan/Problems-Billing Assessment: This is a 59 year old female with reported hx of chronic hyponatremia, adrenal insufficiency, chronic pain, mood disorder and HTN that presented to the ED with complaints ofdizziness and unsteadiness. Found to have accelerated hypertension and severe hyponatremia. treated in ICU with IV fluid. HAd syncope while working with PT. Pending CT(MRI could not be done because of stimulator) - Patient Problems (1) Syncope Current Visit: Yes Status: Acute Code(s): R55 - SYNCOPE AND COLLAPSE SNOMED Code(s): 392851478 Comment: -had near-syncope yesterday with physical therapy and syncope today while working with physical therapy -felt weak to legs, had nausea and abdominal discomfort before passing out. -Denies chest pain, sob and palpitation -BG normal; HR and Bp normal; pending orthostatics -EKG normal-sinus rhythm -will monitor on Tele -will do CT scan of cervical spine given recent cervical intervention (2) Hyponatremia Current Visit: Yes Status: Acute Code(s): E87.1 - HYPO-OSMOLALITY AND HYPONATREMIA SNOMED Code(s): 60034814 Comment: - Likely component of effects of trileptal/SIADH - Sodium 126 from 123 Urine Na is 43 and urine osm high; low serum osm- consistent with SIADH - Recommend continuing fluid restriction and taper off trileptal as an outpatient, discussed at length with patient to monitor sodium levels after discharge and discuss with her psychiatrist -will monitor Na (3) Accelerated hypertension Current Visit: Yes Status: Acute Code(s): I10 - ESSENTIAL (PRIMARY) HYPERTENSION SNOMED Code(s): 13503469 Comment: - Responded well to hydralazine - Restarted home meds, amlodipine and losartan (4) Adrenal insufficiency Current Visit: Yes Status: Acute Code(s): E27.40 - UNSPECIFIED ADRENOCORTICAL INSUFFICIENCY SNOMED Code(s): 218777379 Comment: - was on fludricortisone for many years then abruptly taken off by PCP last month because of hypertension - However, ACTH stim test completed and is negative, so it is unclear if she ever truly had the diagnosis (5) Mood disorder Current Visit: Yes Status: Acute Code(s): F39 - UNSPECIFIED MOOD [AFFECTIVE ] DISORDER SNOMED Code(s): 28729459 Comment: - Continue home meds, -recommend different mood stabilizer other than trileptal given chronically low sodium -will need to slowly taper it by psychiatrist (6) Chronic pain Current Visit: Yes Status: Acute Code(s): G89.29 - OTHER CHRONIC PAIN SNOMED Code(s): 08656840 Comment: - Supportive care (7) Hypothyroid Current Visit: Yes Status: Acute Code(s): E03.9 - HYPOTHYROIDISM, UNSPECIFIED SNOMED Code(s): 91244805 Comment: -Continue levothyroxine 50 (8) DVT prophylaxis Current Visit: Yes Status: Acute Code(s): Z29.9 - ENCOUNTER FOR PROPHYLACTIC MEASURES, UNSPECIFIED SNOMED Code(s): 750311422 Comment: -lovenox (9) Full code status Current Visit: Yes Status: Acute Code(s): Z78.9 - OTHER SPECIFIED HEALTH STATUS SNOMED Code(s): 970084748 Status and Disposition: inpatient likely needs rehab pending full PT evaluation Attending: Mera Munoz Attestation Documenting Resident: Kassidy Israel Supervising Physician: Mera Munoz Attestation: This service has been performed in part by a resident under the direction of a teaching physician.I, Mera Arbach, performed the service, or was physically present during the critical, or rick portions of the service, furnished by the resident. I participated in the management of the patient.
[2019-10-30] MEDS: Benztropine TAB* 1 MG PO SCH ×2 (08:24→20:23)
[2019-10-30] MEDS: OXcarbazepine TAB(*) 300 MG PO SCH ×3 (08:26→20:24)
[2019-10-30] MEDS: Losartan TAB* 25 MG PO SCH (08:26)
[2019-10-30] MEDS: amLODIPine TAB* 5 MG PO SCH (08:26)
[2019-10-30] MEDS: ARIPiprazole TAB* 15 MG PO SCH (08:27)
[2019-10-30] MEDS: Enoxaparin(*) 40 MG/0.4 ML SYR SUBCUT SCH (08:27)
[2019-10-30] MEDS: CMCS:Desvenlafaxine (NF) 50 MG TAB PO SCH (08:27)
[2019-10-30 10:08] LABS: BUN/Creatinine Ratio 27.1 (8-20); Calcium 9.3 mg/dL (8.6-10.3); EGFR African American 126.7 (>60); EGFR Non-African American 104.7 (>60); Potassium 3.7 mmol/L (3.5-5.0)
[2019-10-30] MEDS: Acetaminophen TAB* 325 MG PO PRN (17:37)
[2019-10-30] MEDS: Pregabalin 50 mg CAP (*) PO SCH (20:23)
[2019-10-31] MEDS: Levothyroxine TAB* 50 MCG TAB PO SCH (05:21)
[2019-10-31 06:56] LABS: Hematocrit 33 % (35-47); Hemoglobin 11.8 g/dL (12.0-16.0); Mean Corpuscular HGB Conc 36 g/dL (31-36); Mean Corpuscular Hemoglobin 32 pg (27-31); Mean Corpuscular Volume 88 fL (80-97); Mean Platelet Volume 5.9 fL (7.4-10.4); Platelet Count 419 10^3/uL (150-450); Red Blood Count 3.73 10^6 /uL (3.70-4.87); Red Cell Distribution Width 13 % (10-15); White Blood Count 3.7 10^3/uL (3.5-10.8)
--- NOTE | 2019-10-31 07:10 | PN ---
Subjective Date of Service: 10/31/19 Interval History: HD 4 on 10/31 Transferred from ICU on 10/29 59 F with PMH of chronic hyponatremia, suspected adrenal insufficiency, HTN, chronic pain, mood disorder presents with dizziness and unsteadiness. Found to have acclerated Hypertension and severe hyponatremia. Treated with IV fluid in ICU and with hydralazine for HTN. Hospital stay complicated by syncopal episode Overnight; No acute overnight events vitals: stable Patient seen and examined at bedside. Patient having her breakfast. Patient any symptoms at present. She denies headache, chest pain, SOB, palpitation and dizziness. Patient states she is ready to go home. Objective Active Medications: Acetaminophen (Tylenol Tab*) 650 mg PO Q6H PRN PRN Reason: MILD PAIN or TEMP > 100.4 Last Admin: 10/30/19 17:37 Dose: 650 mg Amlodipine Besylate (Norvasc Tab*) 5 mg PO DAILY [facility] Last Admin: 10/30/19 08:26 Dose: 5 mg Aripiprazole (Abilify Tab*) 15 mg PO DAILY [facility] Last Admin: 10/30/19 08:27 Dose: 15 mg Benztropine Mesylate (Cogentin Tab*) 0.5 mg PO BID [facility] Last Admin: 10/30/19 20:23 Dose: 0.5 mg Desvenlafaxine Succinate (Pristiq (Nf)) 50 mg PO DAILY [facility] Last Admin: 10/30/19 08:27 Dose: 50 mg Diazepam (Valium Tab(*)) 10 mg PO BID PRN PRN Reason: AGITATION/ANXIETY Enoxaparin Sodium (Lovenox(*)) 40 mg SUBCUT Q24H [facility] Last Admin: 10/30/19 08:27 Dose: 40 mg Hydralazine HCl (Apresoline Iv*) 5 mg IV SLOW PU Q6H PRN PRN Reason: SBP>160 Levothyroxine Sodium (Synthroid Tab*) 50 mcg PO DAILY@0600 [facility] Last Admin: 10/31/19 05:21 Dose: 50 mcg Losartan Potassium (Cozaar Tab*) 100 mg PO DAILY [facility] Last Admin: 10/30/19 08:26 Dose: 100 mg Oxcarbazepine (Trileptal Tab(*)) 600 mg PO TID [facility] Last Admin: 02/14/20 20:24 Dose: 600 mg Pregabalin (Lyrica 50 Mg Cap (*)) 150 mg PO BEDTIME [facility] Last Admin: 10/30/19 20:23 Dose: 150 mg Vital Signs - 8 hr 10/30/19 10/31/19 23:27 03:09 Temperature 97.6 F 97.6 F Pulse Rate 81 65 Respiratory 17 17 Rate Blood Pressure 114/74 127/78 (mmHg) O2 Sat by Pulse 100 100 Oximetry Oxygen Devices in Use Now: None Exam: General - NAD, sitting up in bed, Eyes - PERRLA, EOM intact HEENT- no abnormality Lymph Nodes - No lymphadenopathy Cardiovascular - RRR no m/r/g, no JVD, no carotid bruits Lungs - Clear to auscltation, no use of acessory muscles, no crackles or wheezes. Skin - No rashes, skin warm and dry, no erythematous areas Abdomen - Normal bowel sounds, abdomen soft and nontender Extremities - No edema, cyanosis or clubbing Musculo Skeletal - , no swollen or erythematous joints. 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 CN intact Result Diagrams: 10/31/19 06:31 10/31/19 06:31 Additional Lab and Data: Lab Results 10/28/19 10/28/19 10/28/19 Range/Units 15:58 15:58 15:58 WBC 5.3 (3.5-10.8) 10^3/uL RBC 3.92 (3.70-4.87) 10^6 /uL Hgb 12.5 (12.0-16.0) g/dL Hct 34 L (35-47) % MCV 87 (80-97) fL MCH 32 H (27-31) pg MCHC 37 H (31-36) g/dL RDW 13 (10-15) % Plt Count 432 (150-450) 10^3/uL MPV 5.9 L (7.4-10.4) fL Neut % (Auto) 67.4 % Lymph % (Auto) 20.6 % [place] % (Auto) 8.7 % Eos % (Auto) 2.2 % Baso % (Auto) 1.1 % Absolute Neuts (auto) 3.6 (1.5-7.7) 10^3/ul Absolute Lymphs (auto) 1.1 (1.0-4.8) 10^3/ul Absolute Monos (auto) 0.5 (0-0.8) 10^3/ul Absolute Eos (auto) 0.1 (0-0.6) 10^3/ul Absolute Basos (auto) 0.1 (0-0.2) 10^3/ul Absolute Nucleated RBC 0.0 10^3/ul Nucleated RBC % 0.0 INR (Anticoag Therapy) 0.96 (0.82-1.09) Sodium 118 L* (135-145) mmol/L Potassium 3.6 (3.5-5.0) mmol/L Chloride 85 L (101-111) mmol/L Carbon Dioxide 28 (22-32) mmol/L Anion Gap 5 (2-11) mmol/L BUN 10 (6-24) mg/dL Creatinine 0.57 (0.51-0.95) mg/dL Est GFR ( Amer) 131.8 (>60) Est GFR (Non-Af Amer) 108.9 (>60) BUN/Creatinine Ratio 17.5 (8-20) Glucose 98 (70-100) mg/dL Lactic Acid (0.5-2.0) mmol/L Calcium 9.5 (8.6-10.3) mg/dL Total Bilirubin 0.40 (0.2-1.0) mg/dL AST 19 (13-39) U/L ALT 10 (7-52) U/L Alkaline Phosphatase 80 (34-104) U/L Troponin I 0.00 (<0.03) ng/mL Total Protein 7.7 (6.4-8.9) g/dL Albumin 4.8 (3.2-5.2) g/dL Globulin 2.9 (2-4) g/dL Albumin/Globulin Ratio 1.7 (1-3) TSH Pending Thyroxine (T4) Pending Urine Color Urine Appearance Urine pH (5-9) Ur Specific [place] (1.010-1.030) Urine Protein (Negative) Urine Ketones (Negative) Urine Blood (Negative) Urine Nitrate (Negative) Urine Bilirubin (Negative) Urine Urobilinogen (Negative) Ur Leukocyte Esterase (Negative) Urine Glucose (Negative) 10/28/19 10/28/19 Range/Units 15:58 16:25 WBC (3.5-10.8) 10^3/uL RBC (3.70-4.87) 10^6 /uL Hgb (12.0-16.0) g/dL Hct (35-47) % MCV (80-97) fL MCH (27-31) pg MCHC (31-36) g/dL RDW (10-15) % Plt Count (150-450) 10^3/uL MPV (7.4-10.4) fL Neut % (Auto) % Lymph % (Auto) % [place] % (Auto) % Eos % (Auto) % Baso % (Auto) % Absolute Neuts (auto) (1.5-7.7) 10^3/ul Absolute Lymphs (auto) (1.0-4.8) 10^3/ul Absolute Monos (auto) (0-0.8) 10^3/ul Absolute Eos (auto) (0-0.6) 10^3/ul Absolute Basos (auto) (0-0.2) 10^3/ul Absolute Nucleated RBC 10^3/ul Nucleated RBC % INR (Anticoag Therapy) (0.82-1.09) Sodium (135-145) mmol/L Potassium (3.5-5.0) mmol/L Chloride (101-111) mmol/L Carbon Dioxide (22-32) mmol/L Anion Gap (2-11) mmol/L BUN (6-24) mg/dL Creatinine (0.51-0.95) mg/dL Est GFR ( Amer) (>60) Est GFR (Non-Af Amer) (>60) BUN/Creatinine Ratio (8-20) Glucose (70-100) mg/dL Lactic Acid 0.4 L (0.5-2.0) mmol/L Calcium (8.6-10.3) mg/dL Total Bilirubin (0.2-1.0) mg/dL AST (13-39) U/L ALT (7-52) U/L Alkaline Phosphatase (34-104) U/L Troponin I (<0.03) ng/mL Total Protein (6.4-8.9) g/dL Albumin (3.2-5.2) g/dL Globulin (2-4) g/dL Albumin/Globulin Ratio (1-3) TSH Thyroxine (T4) Urine Color Straw Urine Appearance Clear Urine pH 7.0 (5-9) Ur Specific [place] 1.009 L (1.010-1.030) Urine Protein Negative (Negative) Urine Ketones Negative (Negative) Urine Blood 1+ A (Negative) Urine Nitrate Negative (Negative) Urine Bilirubin Negative (Negative) Urine Urobilinogen Negative (Negative) Ur Leukocyte Esterase Negative (Negative) Urine Glucose Negative (Negative) Microbiology and Other Data: Microbiology 10/28/19 21:27 Nasal Screen MRSA (PCR) - Final Nasal Mrsa Not Detected Assess/Plan/Problems-Billing Assessment: This is a 59 year old female with reported hx of chronic hyponatremia, adrenal insufficiency, chronic pain, mood disorder and HTN that presented to the ED with complaints ofdizziness and unsteadiness. Found to have accelerated hypertension and severe hyponatremia. treated in ICU with IV fluid. HAd syncope while working with PT. CT normal - Patient Problems (1) Syncope Current Visit: Yes Status: Acute Code(s): R55 - SYNCOPE AND COLLAPSE SNOMED Code(s): 048465167 Comment: -had one near-syncope and one episode of syncope while working with physical therapy -felt weak to legs, hot, had nausea and abdominal discomfort before passing out. -Denies chest pain, sob and palpitation -BG normal; HR and Bp normal; orthostatics normal -EKG normal-sinus rhythm -will monitor on Tele -CT scan of C-spine normal -pending ECHO (2) Hyponatremia Current Visit: Yes Status: Acute Code(s): E87.1 - HYPO-OSMOLALITY AND HYPONATREMIA SNOMED Code(s): 95560446 Comment: - Likely component of effects of trileptal/SIADH - Sodium 128 from 126 Urine Na is 43 and urine osm high; low serum osm- consistent with SIADH - Recommend continuing fluid restriction and taper off trileptal as an outpatient, discussed at length with patient to monitor sodium levels after discharge and discuss with her psychiatrist -will monitor Na (3) Accelerated hypertension Current Visit: Yes Status: Acute Code(s): I10 - ESSENTIAL (PRIMARY) HYPERTENSION SNOMED Code(s): 61984084 Comment: - Responded well to hydralazine - Restarted home meds, amlodipine and losartan -Bp controlled now (4) Adrenal insufficiency Current Visit: Yes Status: Acute Code(s): E27.40 - UNSPECIFIED ADRENOCORTICAL INSUFFICIENCY SNOMED Code(s): 587616091 Comment: - was on fludricortisone for many years then abruptly taken off by PCP last month because of hypertension - However, ACTH stim test completed and is negative, so it is unclear if she ever truly had the diagnosis (5) Mood disorder Current Visit: Yes Status: Acute Code(s): F39 - UNSPECIFIED MOOD [AFFECTIVE ] DISORDER SNOMED Code(s): 54104973 Comment: - Continue home meds, -recommend different mood stabilizer other than trileptal given chronically low sodium -will need to slowly taper it by psychiatrist (6) Chronic pain Current Visit: Yes Status: Acute Code(s): G89.29 - OTHER CHRONIC PAIN SNOMED Code(s): 82241869 Comment: - Supportive care (7) Hypothyroid Current Visit: Yes Status: Acute Code(s): E03.9 - HYPOTHYROIDISM, UNSPECIFIED SNOMED Code(s): 07212134 Comment: -Continue levothyroxine 50 (8) DVT prophylaxis Current Visit: Yes Status: Acute Code(s): Z29.9 - ENCOUNTER FOR PROPHYLACTIC MEASURES, UNSPECIFIED SNOMED Code(s): 993977746 Comment: -lovenox (9) Full code status Current Visit: Yes Status: Acute Code(s): Z78.9 - OTHER SPECIFIED HEALTH STATUS SNOMED Code(s): 650247210 Status and Disposition: inpatient likely needs rehab pending full PT evaluation Attending: Mera Munoz Attestation Documenting Resident: Kassidy Israel Supervising Physician: Mera Munoz Attestation: This service has been performed in part by a resident under the direction of a teaching physician.I, Mera Munoz, performed the service, or was physically present during the critical, or rick portions of the service, furnished by the resident. I participated in the management of the patient.
[2019-10-31 07:34] LABS: Magnesium 1.7 mg/dL (1.9-2.7); Potassium 3.8 mmol/L (3.5-5.0)
[2019-10-31 07:40] LABS: BUN/Creatinine Ratio 23.7 (8-20); EGFR African American 126.7 (>60); EGFR Non-African American 104.7 (>60)
[2019-10-31] MEDS: CMCS:Desvenlafaxine (NF) 50 MG TAB PO SCH (08:13)
[2019-10-31] MEDS: ARIPiprazole TAB* 15 MG PO SCH (08:13)
[2019-10-31] MEDS: Enoxaparin(*) 40 MG/0.4 ML SYR SUBCUT SCH (08:13)
[2019-10-31] MEDS: Losartan TAB* 25 MG PO SCH (08:14)
[2019-10-31] MEDS: Benztropine TAB* 1 MG PO SCH ×2 (08:14→20:31)
[2019-10-31] MEDS: OXcarbazepine TAB(*) 300 MG PO SCH ×3 (08:16→20:29)
[2019-10-31] MEDS: amLODIPine TAB* 5 MG PO SCH (08:18)
[2019-10-31] MEDS: Diazepam TAB(*) 5 MG PO PRN ×2 (10:02→20:32)
[2019-10-31] MEDS ORDERED: Magnesium Sulfate 2 GM IV* 2 GM/50 ML BAG IVPB ONE (14:27)
[2019-10-31] MEDS: Acetaminophen TAB* 325 MG PO PRN (16:12)
[2019-10-31] MEDS: Pregabalin 50 mg CAP (*) PO SCH (20:30)
[2019-11-01] MEDS: Levothyroxine TAB* 50 MCG TAB PO SCH (05:19)
[2019-11-01] MEDS: ARIPiprazole TAB* 15 MG PO SCH (09:18)
[2019-11-01] MEDS: CMCS:Desvenlafaxine (NF) 50 MG TAB PO SCH (09:18)
[2019-11-01] MEDS: OXcarbazepine TAB(*) 300 MG PO SCH ×3 (09:18→20:21)
[2019-11-01] MEDS: Losartan TAB* 25 MG PO SCH (09:20)
[2019-11-01] MEDS: Benztropine TAB* 1 MG PO SCH ×2 (09:20→20:26)
[2019-11-01] MEDS: Enoxaparin(*) 40 MG/0.4 ML SYR SUBCUT SCH (09:22)
[2019-11-01] MEDS: amLODIPine TAB* 5 MG PO SCH (09:22)
[2019-11-01] MEDS: Acetaminophen TAB* 325 MG PO PRN ×2 (09:26→16:05)
--- NOTE | 2019-11-01 16:31 | PN ---
Subjective Date of Service: 11/01/19 Interval History: No acute events overnight. Patient again walking a lot without events on telemetry for over 36 hours. Will DC telemetry but we are still pending TTE before discharge. Pt would like to go home. She reports a history of episodes of syncope preceded by feeling woozy, hot, sweaty, and with tunnel vision. We discussed she does not need an echo if she is known to have this vasovagal prodrome, but then she admits that her syncopal episode on Saturday afternoon was different because that was "lights out", not preceded by symptoms. Objective Active Medications: Acetaminophen (Tylenol Tab*) 650 mg PO Q6H PRN PRN Reason: MILD PAIN or TEMP > 100.4 Last Admin: 11/01/19 16:05 Dose: 650 mg Amlodipine Besylate (Norvasc Tab*) 5 mg PO DAILY [facility] Last Admin: 11/01/19 09:22 Dose: 5 mg Aripiprazole (Abilify Tab*) 15 mg PO DAILY [facility] Last Admin: 11/01/19 09:18 Dose: 15 mg Benztropine Mesylate (Cogentin Tab*) 0.5 mg PO BID [facility] Last Admin: 11/01/19 09:20 Dose: 0.5 mg Desvenlafaxine Succinate (Pristiq (Nf)) 50 mg PO DAILY [facility] Last Admin: 11/01/19 09:18 Dose: 50 mg Enoxaparin Sodium (Lovenox(*)) 40 mg SUBCUT Q24H [facility] Last Admin: 11/01/19 09:22 Dose: 40 mg Levothyroxine Sodium (Synthroid Tab*) 50 mcg PO DAILY@0600 [facility] Last Admin: 11/01/19 05:19 Dose: 50 mcg Losartan Potassium (Cozaar Tab*) 100 mg PO DAILY [facility] Last Admin: 11/01/19 09:20 Dose: 100 mg Oxcarbazepine (Trileptal Tab(*)) 600 mg PO TID [facility] Last Admin: 11/01/19 14:13 Dose: 600 mg Pregabalin (Lyrica 50 Mg Cap (*)) 150 mg PO BEDTIME [facility] Last Admin: 10/31/19 20:30 Dose: 150 mg Vital Signs - 8 hr 11/01/19 11/01/19 11/01/19 09:00 10:56 14:51 Temperature 97.8 F 97.4 F Pulse Rate 87 85 Respiratory 16 14 16 Rate Blood Pressure 149/77 135/74 (mmHg) O2 Sat by Pulse 99 100 Oximetry Oxygen Devices in Use Now: None Appearance: well appearing woman in NAD, alert and interactive Eyes: No Scleral Icterus Ears/Nose/Mouth/Throat: NL Teeth, Lips, Gums, Clear Oropharnyx Neck: NL Appearance and Movements; NL JVP, Trachea Midline Respiratory: Symmetrical Chest Expansion and Respiratory Effort, Clear to Auscultation Cardiovascular: NL Sounds; No Murmurs; No JVD, RRR Abdominal: NL Sounds; No Tenderness; No Distention, No Hepatosplenomegaly Extremities: No Edema Skin: No Rash or Ulcers Neurological: Alert and Oriented x 3 Result Diagrams: 10/31/19 06:31 10/31/19 06:31 Additional Lab and Data: Lab Results 10/28/19 10/28/19 10/28/19 Range/Units 15:58 15:58 15:58 WBC 5.3 (3.5-10.8) 10^3/uL RBC 3.92 (3.70-4.87) 10^6 /uL Hgb 12.5 (12.0-16.0) g/dL Hct 34 L (35-47) % MCV 87 (80-97) fL MCH 32 H (27-31) pg MCHC 37 H (31-36) g/dL RDW 13 (10-15) % Plt Count 432 (150-450) 10^3/uL MPV 5.9 L (7.4-10.4) fL Neut % (Auto) 67.4 % Lymph % (Auto) 20.6 % [facility] % (Auto) 8.7 % Eos % (Auto) 2.2 % Baso % (Auto) 1.1 % Absolute Neuts (auto) 3.6 (1.5-7.7) 10^3/ul Absolute Lymphs (auto) 1.1 (1.0-4.8) 10^3/ul Absolute Monos (auto) 0.5 (0-0.8) 10^3/ul Absolute Eos (auto) 0.1 (0-0.6) 10^3/ul Absolute Basos (auto) 0.1 (0-0.2) 10^3/ul Absolute Nucleated RBC 0.0 10^3/ul Nucleated RBC % 0.0 INR (Anticoag Therapy) 0.96 (0.82-1.09) Sodium 118 L* (135-145) mmol/L Potassium 3.6 (3.5-5.0) mmol/L Chloride 85 L (101-111) mmol/L Carbon Dioxide 28 (22-32) mmol/L Anion Gap 5 (2-11) mmol/L BUN 10 (6-24) mg/dL Creatinine 0.57 (0.51-0.95) mg/dL Est GFR ( Amer) 131.8 (>60) Est GFR (Non-Af Amer) 108.9 (>60) BUN/Creatinine Ratio 17.5 (8-20) Glucose 98 (70-100) mg/dL Lactic Acid (0.5-2.0) mmol/L Calcium 9.5 (8.6-10.3) mg/dL Total Bilirubin 0.40 (0.2-1.0) mg/dL AST 19 (13-39) U/L ALT 10 (7-52) U/L Alkaline Phosphatase 80 (34-104) U/L Troponin I 0.00 (<0.03) ng/mL Total Protein 7.7 (6.4-8.9) g/dL Albumin 4.8 (3.2-5.2) g/dL Globulin 2.9 (2-4) g/dL Albumin/Globulin Ratio 1.7 (1-3) TSH Pending Thyroxine (T4) Pending Urine Color Urine Appearance Urine pH (5-9) Ur Specific [place] (1.010-1.030) Urine Protein (Negative) Urine Ketones (Negative) Urine Blood (Negative) Urine Nitrate (Negative) Urine Bilirubin (Negative) Urine Urobilinogen (Negative) Ur Leukocyte Esterase (Negative) Urine Glucose (Negative) 10/28/19 10/28/19 Range/Units 15:58 16:25 WBC (3.5-10.8) 10^3/uL RBC (3.70-4.87) 10^6 /uL Hgb (12.0-16.0) g/dL Hct (35-47) % MCV (80-97) fL MCH (27-31) pg MCHC (31-36) g/dL RDW (10-15) % Plt Count (150-450) 10^3/uL MPV (7.4-10.4) fL Neut % (Auto) % Lymph % (Auto) % [facility] % (Auto) % Eos % (Auto) % Baso % (Auto) % Absolute Neuts (auto) (1.5-7.7) 10^3/ul Absolute Lymphs (auto) (1.0-4.8) 10^3/ul Absolute Monos (auto) (0-0.8) 10^3/ul Absolute Eos (auto) (0-0.6) 10^3/ul Absolute Basos (auto) (0-0.2) 10^3/ul Absolute Nucleated RBC 10^3/ul Nucleated RBC % INR (Anticoag Therapy) (0.82-1.09) Sodium (135-145) mmol/L Potassium (3.5-5.0) mmol/L Chloride (101-111) mmol/L Carbon Dioxide (22-32) mmol/L Anion Gap (2-11) mmol/L BUN (6-24) mg/dL Creatinine (0.51-0.95) mg/dL Est GFR ( Amer) (>60) Est GFR (Non-Af Amer) (>60) BUN/Creatinine Ratio (8-20) Glucose (70-100) mg/dL Lactic Acid 0.4 L (0.5-2.0) mmol/L Calcium (8.6-10.3) mg/dL Total Bilirubin (0.2-1.0) mg/dL AST (13-39) U/L ALT (7-52) U/L Alkaline Phosphatase (34-104) U/L Troponin I (<0.03) ng/mL Total Protein (6.4-8.9) g/dL Albumin (3.2-5.2) g/dL Globulin (2-4) g/dL Albumin/Globulin Ratio (1-3) TSH Thyroxine (T4) Urine Color Straw Urine Appearance Clear Urine pH 7.0 (5-9) Ur Specific [place] 1.009 L (1.010-1.030) Urine Protein Negative (Negative) Urine Ketones Negative (Negative) Urine Blood 1+ A (Negative) Urine Nitrate Negative (Negative) Urine Bilirubin Negative (Negative) Urine Urobilinogen Negative (Negative) Ur Leukocyte Esterase Negative (Negative) Urine Glucose Negative (Negative) Microbiology and Other Data: Microbiology 10/28/19 21:27 Nasal Screen MRSA (PCR) - Final Nasal Mrsa Not Detected Assess/Plan/Problems-Billing Assessment: 59W with reported chronic hyponatremia, adrenal insufficiency, chronic pain, mood disorder and HTN that presents with dizziness and unsteadiness. Found to have accelerated hypertension and severe hyponatremia. Course here complicated syncopal episode while walking with PT. - Patient Problems (1) Syncope Comment: History of vasovagal syncope, but one episode this admission with "lights out" syncope while walking with PT. Orthostatics and EKG normal. Tele without events for 2 days. - pending ECHO (2) Accelerated hypertension Comment: Resolved. - cont home meds, amlodipine and losartan (3) Hyponatremia Comment: Likely component of effects of trileptal/SIADH. Marry 43 and UOsm high. - improving with fluid restriction - continue fluid restriction and taper off trileptal as an outpatient, discussed at length with patient to monitor sodium levels after discharge and discuss with her psychiatrist (4) Adrenal insufficiency Comment: - was on fludricortisone for many years then abruptly taken off by PCP last month because of hypertension - However, ACTH stim test completed and is negative, so it is unclear if she ever truly had the diagnosis (5) Hypothyroid Current Visit: Yes Status: Acute Code(s): E03.9 - HYPOTHYROIDISM, UNSPECIFIED SNOMED Code(s): 64663917 Comment: -Continue levothyroxine 50 (6) Mood disorder Current Visit: Yes Status: Acute Code(s): F39 - UNSPECIFIED MOOD [AFFECTIVE ] DISORDER SNOMED Code(s): 63931487 Comment: - Continue home meds, -recommend different mood stabilizer other than trileptal given chronically low sodium -will need to slowly taper it by psychiatrist (7) DVT prophylaxis Comment: -lovenox Status and Disposition: inpatient likely needs rehab pending full PT evaluation
[2019-11-01] MEDS ORDERED: Diazepam TAB(*) 5 MG PO PRN (16:33)
[2019-11-01] MEDS: Pregabalin 50 mg CAP (*) PO SCH (20:22)
[2019-11-02] MEDS: Levothyroxine TAB* 50 MCG TAB PO SCH (06:12)
[2019-11-02 06:56] LABS: BUN/Creatinine Ratio 21.9 (8-20); EGFR African American 115.3 (>60); EGFR Non-African American 95.3 (>60); Magnesium 1.8 mg/dL (1.9-2.7); Potassium 4.4 mmol/L (3.5-5.0)
[2019-11-02] MEDS ORDERED: Magnesium Sulfate 1 GM IV* 1 GM/100 ML BAG IV ONE (07:04)
--- NOTE | 2019-11-02 07:05 | PN ---
Subjective Date of Service: 11/02/19 Interval History: HD 6 on 11/02 Transferred from ICU on 10/29 59 F with PMH of chronic hyponatremia, suspected adrenal insufficiency, HTN, chronic pain, mood disorder presents with dizziness and unsteadiness. Found to have acclerated Hypertension and severe hyponatremia. Treated with IV fluid in ICU and with hydralazine for HTN. Hospital stay complicated by syncopal episode. Pending echo Overnight; No acute overnight events vitals: stable Patient states she is feeling normal today and is ready to go home. Echo is normal. CT brain is normal. Walking around [place] with nursing staff and physical therapy and is okay to go home. Objective Active Medications: Acetaminophen (Tylenol Tab*) 650 mg PO Q6H PRN PRN Reason: MILD PAIN or TEMP > 100.4 Last Admin: 11/01/19 16:05 Dose: 650 mg Amlodipine Besylate (Norvasc Tab*) 5 mg PO DAILY COUNTS INCLUDE 234 BEDS AT THE [facility] Last Admin: 11/01/19 09:22 Dose: 5 mg Aripiprazole (Abilify Tab*) 15 mg PO DAILY COUNTS INCLUDE 234 BEDS AT THE [facility] Last Admin: 11/01/19 09:18 Dose: 15 mg Benztropine Mesylate (Cogentin Tab*) 0.5 mg PO BID COUNTS INCLUDE 234 BEDS AT THE [facility] Last Admin: 11/01/19 20:26 Dose: 0.5 mg Desvenlafaxine Succinate (Pristiq (Nf)) 50 mg PO DAILY COUNTS INCLUDE 234 BEDS AT THE [facility] Last Admin: 11/01/19 09:18 Dose: 50 mg Diazepam (Valium Tab(*)) 5 mg PO BID PRN PRN Reason: AGITATION/ANXIETY Last Admin: 11/01/19 20:22 Dose: 5 mg Enoxaparin Sodium (Lovenox(*)) 40 mg SUBCUT Q24H COUNTS INCLUDE 234 BEDS AT THE [facility] Last Admin: 11/01/19 09:22 Dose: 40 mg Levothyroxine Sodium (Synthroid Tab*) 50 mcg PO DAILY@0600 COUNTS INCLUDE 234 BEDS AT THE [facility] Last Admin: 11/02/19 06:12 Dose: 50 mcg Losartan Potassium (Cozaar Tab*) 100 mg PO DAILY COUNTS INCLUDE 234 BEDS AT THE [facility] Last Admin: 11/01/19 09:20 Dose: 100 mg Oxcarbazepine (Trileptal Tab(*)) 600 mg PO TID COUNTS INCLUDE 234 BEDS AT THE [facility] Last Admin: 11/01/19 20:21 Dose: 600 mg Pregabalin (Lyrica 50 Mg Cap (*)) 150 mg PO BEDTIME JOSUE Last Admin: 11/01/19 20:22 Dose: 150 mg Vital Signs - 8 hr 11/01/19 11/01/19 11/02/19 23:35 23:52 03:40 Temperature 97.5 F 97.5 F Pulse Rate 80 79 Respiratory 18 18 16 Rate Blood Pressure 118/65 130/68 (mmHg) O2 Sat by Pulse 100 98 Oximetry Oxygen Devices in Use Now: None Exam: General - NAD, sitting up in bed, Eyes - PERRLA, EOM intact HEENT- no abnormality Lymph Nodes - No lymphadenopathy Cardiovascular - RRR no m/r/g, no JVD, no carotid bruits Lungs - Clear to auscltation, no use of acessory muscles, no crackles or wheezes. Skin - No rashes, skin warm and dry, no erythematous areas Abdomen - Normal bowel sounds, abdomen soft and nontender Extremities - No edema, cyanosis or clubbing Musculo Skeletal - , no swollen or erythematous joints. 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 CN intact Result Diagrams: 10/31/19 06:31 11/02/19 05:56 Additional Lab and Data: Lab Results 10/28/19 10/28/19 10/28/19 Range/Units 15:58 15:58 15:58 WBC 5.3 (3.5-10.8) 10^3/uL RBC 3.92 (3.70-4.87) 10^6 /uL Hgb 12.5 (12.0-16.0) g/dL Hct 34 L (35-47) % MCV 87 (80-97) fL MCH 32 H (27-31) pg MCHC 37 H (31-36) g/dL RDW 13 (10-15) % Plt Count 432 (150-450) 10^3/uL MPV 5.9 L (7.4-10.4) fL Neut % (Auto) 67.4 % Lymph % (Auto) 20.6 % Armstrong % (Auto) 8.7 % Eos % (Auto) 2.2 % Baso % (Auto) 1.1 % Absolute Neuts (auto) 3.6 (1.5-7.7) 10^3/ul Absolute Lymphs (auto) 1.1 (1.0-4.8) 10^3/ul Absolute Monos (auto) 0.5 (0-0.8) 10^3/ul Absolute Eos (auto) 0.1 (0-0.6) 10^3/ul Absolute Basos (auto) 0.1 (0-0.2) 10^3/ul Absolute Nucleated RBC 0.0 10^3/ul Nucleated RBC % 0.0 INR (Anticoag Therapy) 0.96 (0.82-1.09) Sodium 118 L* (135-145) mmol/L Potassium 3.6 (3.5-5.0) mmol/L Chloride 85 L (101-111) mmol/L Carbon Dioxide 28 (22-32) mmol/L Anion Gap 5 (2-11) mmol/L BUN 10 (6-24) mg/dL Creatinine 0.57 (0.51-0.95) mg/dL Est GFR ( Amer) 131.8 (>60) Est GFR (Non-Af Amer) 108.9 (>60) BUN/Creatinine Ratio 17.5 (8-20) Glucose 98 (70-100) mg/dL Lactic Acid (0.5-2.0) mmol/L Calcium 9.5 (8.6-10.3) mg/dL Total Bilirubin 0.40 (0.2-1.0) mg/dL AST 19 (13-39) U/L ALT 10 (7-52) U/L Alkaline Phosphatase 80 (34-104) U/L Troponin I 0.00 (<0.03) ng/mL Total Protein 7.7 (6.4-8.9) g/dL Albumin 4.8 (3.2-5.2) g/dL Globulin 2.9 (2-4) g/dL Albumin/Globulin Ratio 1.7 (1-3) TSH Pending Thyroxine (T4) Pending Urine Color Urine Appearance Urine pH (5-9) Ur Specific [place] (1.010-1.030) Urine Protein (Negative) Urine Ketones (Negative) Urine Blood (Negative) Urine Nitrate (Negative) Urine Bilirubin (Negative) Urine Urobilinogen (Negative) Ur Leukocyte Esterase (Negative) Urine Glucose (Negative) 10/28/19 10/28/19 Range/Units 15:58 16:25 WBC (3.5-10.8) 10^3/uL RBC (3.70-4.87) 10^6 /uL Hgb (12.0-16.0) g/dL Hct (35-47) % MCV (80-97) fL MCH (27-31) pg MCHC (31-36) g/dL RDW (10-15) % Plt Count (150-450) 10^3/uL MPV (7.4-10.4) fL Neut % (Auto) % Lymph % (Auto) % Armstrong % (Auto) % Eos % (Auto) % Baso % (Auto) % Absolute Neuts (auto) (1.5-7.7) 10^3/ul Absolute Lymphs (auto) (1.0-4.8) 10^3/ul Absolute Monos (auto) (0-0.8) 10^3/ul Absolute Eos (auto) (0-0.6) 10^3/ul Absolute Basos (auto) (0-0.2) 10^3/ul Absolute Nucleated RBC 10^3/ul Nucleated RBC % INR (Anticoag Therapy) (0.82-1.09) Sodium (135-145) mmol/L Potassium (3.5-5.0) mmol/L Chloride (101-111) mmol/L Carbon Dioxide (22-32) mmol/L Anion Gap (2-11) mmol/L BUN (6-24) mg/dL Creatinine (0.51-0.95) mg/dL Est GFR ( Amer) (>60) Est GFR (Non-Af Amer) (>60) BUN/Creatinine Ratio (8-20) Glucose (70-100) mg/dL Lactic Acid 0.4 L (0.5-2.0) mmol/L Calcium (8.6-10.3) mg/dL Total Bilirubin (0.2-1.0) mg/dL AST (13-39) U/L ALT (7-52) U/L Alkaline Phosphatase (34-104) U/L Troponin I (<0.03) ng/mL Total Protein (6.4-8.9) g/dL Albumin (3.2-5.2) g/dL Globulin (2-4) g/dL Albumin/Globulin Ratio (1-3) TSH Thyroxine (T4) Urine Color Straw Urine Appearance Clear Urine pH 7.0 (5-9) Ur Specific [place] 1.009 L (1.010-1.030) Urine Protein Negative (Negative) Urine Ketones Negative (Negative) Urine Blood 1+ A (Negative) Urine Nitrate Negative (Negative) Urine Bilirubin Negative (Negative) Urine Urobilinogen Negative (Negative) Ur Leukocyte Esterase Negative (Negative) Urine Glucose Negative (Negative) Microbiology and Other Data: Microbiology 10/28/19 21:27 Nasal Screen MRSA (PCR) - Final Nasal Mrsa Not Detected Assess/Plan/Problems-Billing Assessment: 59W with reported chronic hyponatremia, adrenal insufficiency, chronic pain, mood disorder and HTN that presents with dizziness and unsteadiness. Found to have accelerated hypertension and severe hyponatremia. Course here complicated syncopal episode while walking with PT. Echo and ct brain normal - Patient Problems (1) Syncope Current Visit: Yes Status: Acute Code(s): R55 - SYNCOPE AND COLLAPSE SNOMED Code(s): 084038158 Comment: History of vasovagal syncope, but one episode this admission with "lights out" syncope while walking with PT. Orthostatics and EKG normal. Tele without events for 2 days. - Echo normal -Ct brain-normal (2) Hyponatremia Current Visit: Yes Status: Acute Code(s): E87.1 - HYPO-OSMOLALITY AND HYPONATREMIA SNOMED Code(s): 55812537 Comment: Likely component of effects of trileptal/SIADH. Marry 44 and UOsm high. - improving with fluid restriction - continue fluid restriction and taper off trileptal as an outpatient, discussed at length with patient to monitor sodium levels after discharge and discuss with her psychiatrist (3) Accelerated hypertension Current Visit: Yes Status: Acute Code(s): I10 - ESSENTIAL (PRIMARY) HYPERTENSION SNOMED Code(s): 97126541 Comment: Resolved. - cont home meds, amlodipine and losartan (4) Adrenal insufficiency Current Visit: Yes Status: Acute Code(s): E27.40 - UNSPECIFIED ADRENOCORTICAL INSUFFICIENCY SNOMED Code(s): 249505291 Comment: - was on fludricortisone for many years then abruptly taken off by PCP last month because of hypertension - However, ACTH stim test completed and is negative, so it is unclear if she ever truly had the diagnosis (5) Mood disorder Current Visit: Yes Status: Acute Code(s): F39 - UNSPECIFIED MOOD [AFFECTIVE ] DISORDER SNOMED Code(s): 36695090 Comment: - Continue home meds, -recommend different mood stabilizer other than trileptal given chronically low sodium -will need to slowly taper it by psychiatrist (6) Chronic pain Current Visit: Yes Status: Acute Code(s): G89.29 - OTHER CHRONIC PAIN SNOMED Code(s): 54526321 Comment: - Supportive care (7) Hypothyroid Current Visit: Yes Status: Acute Code(s): E03.9 - HYPOTHYROIDISM, UNSPECIFIED SNOMED Code(s): 65660937 Comment: -Continue levothyroxine 50 (8) DVT prophylaxis Current Visit: Yes Status: Acute Code(s): Z29.9 - ENCOUNTER FOR PROPHYLACTIC MEASURES, UNSPECIFIED SNOMED Code(s): 841648053 Comment: -lovenox (9) Full code status Current Visit: Yes Status: Acute Code(s): Z78.9 - OTHER SPECIFIED HEALTH STATUS SNOMED Code(s): 924530325 Status and Disposition: inpatient dc today ' Attending: Mera Munoz Attestation Documenting Resident: Kassidy Israel Supervising Physician: Mera Munoz Attestation: This service has been performed in part by a resident under the direction of a teaching physician.I, Mera Munoz, performed the service, or was physically present during the critical, or rick portions of the service, furnished by the resident. I participated in the management of the patient.
[2019-11-02] MEDS: Enoxaparin(*) 40 MG/0.4 ML SYR SUBCUT SCH (08:19)
[2019-11-02] MEDS: amLODIPine TAB* 5 MG PO SCH (08:20)
[2019-11-02] MEDS: OXcarbazepine TAB(*) 300 MG PO SCH ×2 (08:20→14:57)
[2019-11-02] MEDS: CMCS:Desvenlafaxine (NF) 50 MG TAB PO SCH (08:20)
[2019-11-02] MEDS: ARIPiprazole TAB* 15 MG PO SCH (08:20)
[2019-11-02] MEDS: Losartan TAB* 25 MG PO SCH (08:20)
[2019-11-02] MEDS: Benztropine TAB* 1 MG PO SCH (08:21)
--- NOTE | 2019-11-02 15:18 | ECHO ---
*[facility]* [place] [address] Fax #: [phone] Transthoracic Echocardiogram Patient: Jocy Sanchez : 1960 Study Date: 11/02/2019 Age: 59 Gender: F HR: 83 bpm Height: 64 in /162.6 cm BSA: 1.7 m^2 Weight: 143.7 lb /65.3 kg BMI: 24.7 kg/m^2 *Referring Physician: * Kassidy Israel *Reading Physician: * Josh Parkinson MD Indications: Syncope. History: Syncope. Risk factors: Hypertension. Conclusions Summary: - Left ventricle: Systolic function is normal. The estimated ejection fraction is 55-60%. Wall motion is normal; there are no regional wall motion abnormalities. - Aortic valve: Transvalvular velocity is within the normal range. There is no evidence of stenosis. - Tricuspid valve: There is trace regurgitation. - Pulmonary arteries: Systolic pressure is within the normal range, estimated to be 35 mm Hg. - Study data: No prior study is available for comparison. Study data: Transthoracic echocardiogram. Procedure: Transthoracic echocardiography was performed. Image quality was good. Complete 2D, spectral Doppler, and color flow Doppler. Location: Bedside. Patient status: Inpatient. Patient room number: 417-02. No prior study is available for comparison. Rhythm: Normal sinus rhythm. Findings Left ventricle: The cavity size is normal. Wall thickness is normal. Systolic function is normal. The estimated ejection fraction is 55-60%. Wall motion is normal; there are no regional wall motion abnormalities. Left ventricular diastolic function parameters are normal. Right ventricle: The cavity size is normal. Systolic function is normal. Ventricular septum: The ventricular septum is normal. Left atrium: The atrium is normal in size. Right atrium: The atrium is normal in size. Atrial septum: No defect or patent foramen ovale is identified. Mitral valve: The valve is structurally normal. There is no evidence of stenosis. There is trace regurgitation. Aortic valve: The valve is structurally normal. The valve is trileaflet. The leaflets are normal thickness. Cusp separation is normal. Transvalvular velocity is within the normal range. There is no evidence of stenosis. There is no significant regurgitation. Tricuspid valve: The valve is structurally normal. There is no evidence of stenosis. There is trace regurgitation. Pulmonic valve: The valve is structurally normal. There is no evidence of stenosis. There is trace regurgitation. Aorta: The aortic root appears normal. The aortic arch appears normal. Pericardium: There is no significant pericardial effusion. Pulmonary arteries: Systolic pressure is within the normal range, estimated to be 35 mm Hg. Pulmonary veins: The Pulmonary veins appear normal. Measurements Left ventricle Value Ref Aortic valve Value Ref TRAE, LAX 4.0 cm 3.8 - Peak v, S 1.62 m/sec ----- 5.2 VTI, S 29.5 cm ----- ESD, LAX 2.8 cm 2.2 - Mean grad, S 6.0 mm Hg ----- 3.5 Peak grad, S 10.0 mm Hg ----- FS, LAX 31 % 45 RICHARD, VTI 2.77 cm^2 ----- PW, ED, LAX (H) 1.2 cm 0.6 - RICHARD, Vmax 2.38 cm^2 ----- 0.9 FS 31 % Mitral valve Value Ref Mid-wall FS 12 % -------- Peak E 0.9 m/sec ----- PW, ED (H) 1.2 cm 0.6 - Peak A 1.08 m/sec ----- 0.9 Decel time 161 ms ----- PW/ID, ED 0.3 -------- Peak grad, D 3.2 mm Hg ----- E', lat loi, TDI 10.1 cm/sec >=10.0 Peak E/A ratio 0.8 ----- E/e', lat loi, TDI 9 -------- E', med loi, TDI (L) 6.0 cm/sec >=7.0 Pulmonic valve Value Ref E/e', med loi, TDI 15 -------- Peak v, S 1.11 m/sec --- -- E', avg, TDI 8.1 cm/sec -------- Peak grad, S 5.0 mm Hg --- -- E/e', avg, TDI 11 <=14 Tricuspid valve Value Ref LVOT Value Ref TR peak v 2.76 m/sec <=2.8 Diam, S 2.00 cm -------- Peak RV-RA grad, S 30 mm Hg ----- Area 3.1 cm^2 -------- Max TR [place] 2.81 m/sec ----- Peak [place], S 1.23 m/sec -------- Peak grad, S 6 mm Hg -------- Aortic root Value Ref Mean grad, S 3 mm Hg -------- Root diam 3.1 cm <3.9 SV 82 ml -------- Ascending aorta Value Ref Ventricular septum Value Ref AAo AP diam, S 3.2 cm ----- IVS, ED (H) 1.1 cm 0.6 - 0.9 Aortic arch Value Ref Arch diam 2.2 cm ----- Right ventricle Value Ref TRAE, LAX 3.4 cm -------- Decending aorta Value Ref TRAE minor ax, A4C 3.5 cm 1.9 - Manjit peak [place] 0.6 m/sec ----- mid 3.5 Inferior vena cava Value Ref Left atrium Value Ref Diam 1.6 cm ----- ML dim, A4C 4.4 cm -------- SI dim, A4C 4.4 cm -------- Vol/bsa, ES, 1-p 19 ml/m^2 11 - 40 A4C Vol/bsa, ES, A/L 26 ml/m^2 16 - 34 Right atrium Value Ref SI dim, ES 3.8 cm 3.4 - 5.3 ML dim, ES, A4C 3.5 cm 2.6 - 4.4 SI dim, ES, A4C 3.8 cm 3.4 - 5.3 Legend: (L) and (H) angelic values outside specified reference range. Prepared and electronically signed by Josh Parkinson MD 11/02/2019 15:17
--- NOTE | 2019-11-02 17:23 | DS ---
Resident Discharge Summary Discharge Summary: Date of Admission: 10/28/19 Date of Discharge: 11/02/19 Admitting MD: Grace Merrill NP Attending MD: Mera Munoz MD Primary Care Physician: Patient Does Not Have PCP HOME MEDICATION ARIPiprazole TAB* [Abilify 15 MG TAB*] 15 mg PO DAILY 10/28/19 [History Confirmed 10/28/19] Benztropine TAB* [Cogentin TAB*] 0.5 mg PO BID 10/28/19 [History Confirmed 10/28] Desvenlafaxine Succinate [Desvenlafaxine Succinate ER] 50 mg PO DAILY 10/28/19 [ History Confirmed 10/28/19] Levothyroxine TAB* [Synthroid TAB*] 50 mcg PO DAILY 10/28/19 [History Confirmed 10/28/19] Losartan Potassium 100 mg PO DAILY 10/28/19 [History Confirmed 10/28/19] OXcarbazepine TAB(*) [Trileptal 300 mg TAB(*)] 600 mg PO TID 10/28/19 [History Confirmed 10/28/19] Pregabalin 100 mg CAP (*) [Lyrica 100 mg CAP (*)] 150 mg PO BEDTIME 10/28/19 [ History Confirmed 10/28/19] amLODIPine TAB* [Norvasc 5 mg TAB*] 5 mg PO DAILY 10/28/19 [History Confirmed ] Acetaminophen TAB* [Tylenol TAB*] 650 mg PO Q6H PRN #30 tab 11/02/19 [Rx] Diazepam TAB(*) [Valium TAB(*)] 5 mg PO BID PRN #30 tab MDD 2 11/02/19 [Rx] Disposition: Home Condition: Stable Primary Diagnosis: 1. Severe Hyponatremia 2. Hypertension 3. Syncope- likely vasovagal Secondary Diagnosis: 1. Hypothyroidism 2. Mood disorder 3. Chronic pain Diagnostic Imagin. Chest Xray: No acute intracranial abnormality. 2. Cervical spine CT: Neurostimulator leads extending into cervical spinal canal with post-operative changes of laminectomy from C4-C6. No other acute intracranial pathology. 3. Transthoracic Echo: Ejection fraction of 55-60%. Normal wall motion. Normal aortic valve. 4. CT Brain: No acute intracranial abnormality. Pertinent Laboratory Results: Pertinent labs: Admission Discharge 1. Hb 12.5 11.8 2. Na 118 129 3. Serum osmolality: 270 4. Cortisol: 25.73 5.Urine osmolality: 478 6. Urine sodium concentration: 43 Hospital Course: This is 59 F with PMH significant for chronicn hyponatremia, Hypertension, chronic pain and mood disorder presented with dizziness and unsteadiness. For detail H and P please review the history and physical. She was found to have severe hyponatremia and acclerated hypertension. Given her severe hyponatremia she was admitted to ICU and was treated with IV fluid. Her hospital stay was complicated by syncopal episode. Her hospital course according to problem are: 1. Severe Hyponatremia: Her Na was 118 on presentation and she was symptomatic. She was given IV fluid and restricted free water. She responded well and her sodium gradually corrected. Her serum osmolality was low with high urine osmolality which points toward SIADH. I think it is medication induced(trileptal ). We have not decreased her trileptal as it should be done as outpatient by her psychiatrist. 2. HYpertension: Her BP on presentation was 209/99 on presentation. She responded well with IV hydralazine. her medication was continued and BP was well controlled throughout hospitalization. 3. Syncope: Patient had syncopal episode while working with PT associated with prodorme. Orthostatic were normal, BG was normal and she was monitored on Tele which did not reveal any arrhythmia. Echo was normal. Brain CT and Cervical CT was negative for acute pathology. It was most likely vasovagal syncope. 4. Mood disorder: We continued her home medication. her diazepam was decreased to 5 mg. CONSULTATION DURING HOSPITAL STAY: NONE On the day of discharge, her vitals were stable. She was ambulating well and was assessed BY PT who cleared her to go home with some support. She was tolerating PO well and had no any symptoms. Follow Up Instructions: In case of an emergency or after clinic hours, please go to your nearest Emergency Department. You may also call the [facility] arc welding machine operator at . ROSANNANGS TO FOLLOW UP STATUS POST DISCHARGE: 1. Her trileptal needs to be tapered down by her psychiatrist and if possible can try alternative medication. 2. Follow up on her hypertension and optimize her. 3. BMP needs to be checked and sodium should be followed. She needs to be on fluid restriction. 4. She will continue to follow up with pain clinic in [place]. 5. we also did ACTH stimulation test as there was suspicion of adrenocortical insufficiency and it was normal. This can be followed up as outpatient if high suspicion. Attestation Documenting Resident: Kassidy Israel Supervising Physician: Mera Munoz Attestation: This service has been performed in part by a resident under the direction of a teaching physician.I, Mera Munoz, performed the service, or was physically present during the critical, or rick portions of the service, furnished by the resident. I participated in the management of the patient.
[2019-11-02 19:27] VITALS: BP 130/64
== END 2019-11-02 17:15 | disposition home or self-care (01) | DRG 424 ==
LOC: ED 14:05 → ICU 17:33 → ED 19:02 → MED 10-29 13:08
PROVIDERS: ADMIT Nurse Practitioner Adult Health; ATTEND Internal Medicine
DX: E22.2 Syndrome of inappropriate secretion of antidiuretic hormone (principal); E27.40 Unspecified adrenocortical insufficiency; I10 Essential (primary) hypertension; E03.9 Hypothyroidism, unspecified; F32.9 Major depressive disorder, single episode, unspecified; G89.29 Other chronic pain; M79.18 Myalgia, other site; R55 Syncope and collapse; T42.1X5A Adverse effect of iminostilbenes, initial encounter; Z91.041 Radiographic dye allergy status; Z79.890 Hormone replacement therapy; Z79.899 Other long term (current) drug therapy; Y92.9 Unspecified place or not applicable
CPT/HCPCS: 36415; 70450; 71046; 72125; 80048; 80053; 81003; 81015; 82533; 83605; 83735; 83930; 83935; 84300; 84436; 84443; 84484; 85025; 85027; 85610; 87086; 87641; 93005; 93306; 99285; A9270-GY; J0360; J0834; J1650; J3475